=== PATIENT | female | born 1930 | race Caucasian/White ===

== ENCOUNTER 2017-11-30 09:29 | Inpatient (IN) ==
[2017-11-30] MEDS ORDERED: Dextrose 5% in Water Inj 1,000 ML IV.SIG SCH (10:00)
[2017-11-30] MEDS ORDERED: Metoprolol Tartrate 25 MG Tablet PO SCH (10:30)
[2017-11-30] MEDS ORDERED: Chlorhexidine Gluconate 2% 1 Pack (2 Cloths) TOPICAL SCH (10:30)
[2017-11-30] MEDS ORDERED: Sodium Chlor 0.9% Inj 500 ML IV.SIG SCH (11:00)
[2017-11-30] MEDS ORDERED: Lidocaine PF 1% Inj 5 ML Syringe INFILTRATN ONE (12:00)
--- NOTE | 2017-11-30 12:39 | ECG ---
Date Performed: 11/30/2017 Time Performed: 10:39:18 PTAGE: 87 years EKG: Possible atrial flutter with rapid response INTRAVENTRICULAR CONDUCTION DELAY ABNORMAL ECG Compared to prior electrocardiogram, Possible atrial flutter is present. PREVIOUS TRACING : 02/10/2013 05.57 DOCTOR: Marcos Orantes Interpretating Date/Time 11/30/2017 12:38:42
[2017-11-30] MEDS: amLODIPine 10 MG Tablet PO SCH (19:15)
--- NOTE | 2017-11-30 19:26 | MP ---
cc: Ross Aparicio MD, Andrew H MD DATE OF OPERATION: 11/30/2017 PREOPERATIVE DIAGNOSIS: 1. Rectal prolapse, rectal bleeding. 2. Colon cancer screening PROCEDURE: Colonoscopy to cecum. POSTOPERATIVE DIAGNOSES: 1. Normal cecum, ileocecal valve. 2. Diverticulosis rectosigmoid left colon. 3. Full-thickness rectal prolapse. SURGEON: Ross Aparicio MD DESCRIPTION OF PROCEDURE: The patient was placed in the left lateral decubitus position. After adequate anesthesia sedation, rectal exam confirmed quite a patulous attenuated sphincter muscle. The rectal mucosa appeared quite thickened and edematous. The Pentax colonoscope was then introduced into the rectum and advanced easily under direct vision to the proximal colon until the cecum was identified. The ileocecal valve was normal. There were no vascular abnormalities noted in the cecum. Colonoscope was then gradually withdrawn, visualizing mucosal surface throughout the distal colon. No polyps were seen. No luminal narrowing was noted. Diverticulosis was noted throughout the colon, but no acute inflammation. In the rectum, the mucosa was quite beefy red and edematous consistent with her prolapse. No active bleeding was seen. The patient tolerated the procedure quite well and was brought to the recovery room in stable condition. Ross Aparicio MD [facility]/lc , 05:41 PM , 05:46 PM
[2017-12-01] MEDS: Levothyroxine 100 MCG Tablet PO SCH (06:13)
--- NOTE | 2017-12-01 07:52 | P.HPUP ---
The Pre-Admit History and Physical Examination regarding the above named patient was reviewed (including, but not limited to, vital signs, heart, lungs, co-morbid conditions), and upon re-examination it is noted that: the patient's condition has not significantly changed since the last examination.
[2017-12-01 08:43] LABS: Baso # (Auto) 0.1 th/mm3 (0.0-0.2); Baso % (Auto) 0.7 % (0.0-2.0); Eos # (Auto) 0.1 th/mm3 (0.0-0.4); Eos % (Auto) 1.6 % (0.0-4.0); Hematocrit 37.3 % (35.0-46.0); Hemoglobin 12.6 gm/dL (11.6-15.3); Lymph # (Auto) 0.8 th/mm3 (1.0-4.8); Lymph % (Auto) 10.2 % (9.0-44.0); Mean Corpuscular HGB Conc 33.7 % (32.0-36.0); Mean Corpuscular Hemoglobin 29.8 pg (27.0-34.0); Mean Corpuscular Volume 88.4 fL (80.0-100.0); Mean Platelet Volume 7.1 fL (7.0-11.0); Mono # (Auto) 0.9 th/mm3 (0.0-0.9); Mono % (Auto) 11.4 % (0.0-8.0); Neut # (Auto) 6.2 th/mm3 (1.8-7.7); Neut % (Auto) 76.1 % (16.0-70.0); Platelet Count 252 th/mm3 (150-450); Red Blood Count 4.22 mil/mm3 (4.00-5.30); Red Cell Distribution Width 14.1 % (11.6-17.2); White Blood Count 8.2 th/mm3 (4.0-11.0)
[2017-12-01 09:00] LABS: Potassium 4.2 meq/L (3.5-5.1)
[2017-12-01] MEDS ORDERED: Ketorolac Inj 30 MG/ML (IVP) Vial ONE (09:52)
[2017-12-01] MEDS ORDERED: Ketorolac Inj 30 MG/ML (IVP) Vial IV.PUSH ONE (10:30)
[2017-12-01] MEDS ORDERED: Acetaminophen 325 MG Tablet PO PRN (11:39)
[2017-12-01] MEDS ORDERED: Ketorolac Inj 30 MG/ML (IVP) Vial IV.PUSH PRN (11:39)
[2017-12-01] MEDS ORDERED: Naloxone Inj 0.4 MG/ML Vial IV.PUSH PRN (11:47)
[2017-12-01] MEDS ORDERED: fentaNYL Citrate Inj 100 MCG/2 ML Ampul ONE (11:55)
[2017-12-01] MEDS ORDERED: Morphine Inj 30 MG/30 ML PCA.VIAL PCA ONE (12:00)
[2017-12-01] MEDS ORDERED: Lidocaine PF 1% Inj 5 ML Syringe INFILTRATN ONE (12:00)
[2017-12-01] MEDS ORDERED: Neostigmine Inj 5 MG/5 ML Syringe IV.PUSH ONE (12:00)
[2017-12-01] MEDS ORDERED: Phenylephrine/NS 1000 MCG/10ML Syringe IV.PUSH ONE (12:00)
[2017-12-01] MEDS ORDERED: Glycopyrrolate Inj 1 MG/5 ML Syringe IV.PUSH ONE (12:00)
[2017-12-01] MEDS ORDERED: KCL 20 mEq/D5W/NaCl 0.9% Inj 1,000 ML ONE (12:28)
[2017-12-01] MEDS: KCL 20 mEq/D5W/NaCl 0.9% Inj 1,000 ML IV.CONT SCH ×2 (12:37→23:23)
[2017-12-01] MEDS: Morphine Inj 30 MG/30 ML PCA.VIAL PCA PRN (12:41)
--- NOTE | 2017-12-01 17:06 | XR ---
EXAM DATE: 12/01/2017 4:51 PM EDT AGE/SEX: 87 years / Female INDICATIONS: Pain. CLINICAL DATA: This is the patient's initial encounter. Patient reports that signs and symptoms have been present for 3 days and indicates a pain score of 3/10. MEDICAL/SURGICAL HISTORY: None. None. COMPARISON: No prior exams available for comparison. FINDINGS: . Soft tissue scarring above the lateral malleolus. There appears to be a cortical step-off in the di stal fibular metadiaphysis with some dorsal displacement of the distal fragment. Well-corticated ossi fications are seen inferior to the lateral and medial malleolar and may represent accessory ossificat ions or old avulsion injuries. Calcaneal spurs at the plantar aponeurosis and Achilles attachment. Dense atherosclerotic calcificat ion of the regional vasculature CONCLUSION: . 1. Fracture through the distal fibular metadiaphysis with associated soft tissue swelling. 2. Well-corticated ossifications inferior to the lateral and medial malleoli appear chronic and may represent accessory ossicles or old avulsion injuries. Electronically signed by: Nicko Giron MD 12/01/2017 5:05 PM EDT
[2017-12-01] MEDS: amLODIPine 10 MG Tablet PO SCH ×2 (18:17→18:28)
[2017-12-02] MEDS: KCL 20 mEq/D5W/NaCl 0.9% Inj 1,000 ML IV.CONT SCH ×3 (03:08→23:52)
[2017-12-02] MEDS: Levothyroxine 100 MCG Tablet PO SCH (05:50)
[2017-12-02 06:30] LABS: Baso % (Auto) 0.1 % (0.0-2.0); Hematocrit 34.4 % (35.0-46.0); Hemoglobin 11.6 gm/dL (11.6-15.3); Lymph # (Auto) 0.6 th/mm3 (1.0-4.8); Lymph % (Auto) 4.5 % (9.0-44.0); Mean Corpuscular HGB Conc 33.9 % (32.0-36.0); Mean Corpuscular Hemoglobin 29.6 pg (27.0-34.0); Mean Corpuscular Volume 87.5 fL (80.0-100.0); Mean Platelet Volume 7.1 fL (7.0-11.0); Mono # (Auto) 0.9 th/mm3 (0.0-0.9); Mono % (Auto) 6.5 % (0.0-8.0); Neut % (Auto) 88.9 % (16.0-70.0); Platelet Count 304 th/mm3 (150-450); Red Blood Count 3.92 mil/mm3 (4.00-5.30); Red Cell Distribution Width 14.1 % (11.6-17.2); White Blood Count 13.6 th/mm3 (4.0-11.0)
[2017-12-02 07:01] LABS: Calcium 8.7 mg/dL (8.5-10.1); Carbon Dioxide 26.6 meq/L (21.0-32.0); Potassium 4.7 meq/L (3.5-5.1)
--- NOTE | 2017-12-02 08:11 | P.PNCS ---
Subjective Colorectal Surgery Post Op Day #: 1 Interval history: afebrile, VSS UO good Objective Result Diagrams: 12/02/17 06:07 12/02/17 06:07 Objective Remarks: PE alert Abd - softly distended, wound dry Xray - lt ankle - ?small fx distal fibula Assessment and Plan - Plan Imp: stable post-op OOB ortho consult decr IVF
[2017-12-02] MEDS: Pantoprazole Inj 40 MG Vial IV.PUSH SCH (10:56)
--- NOTE | 2017-12-02 14:22 | P.CONOP ---
[facility] Orthopedics Consult Note - [facility] Consult date: 12/02/17 Chief complaint: Colon Narrative: 87-year-old female who presented to the hospital for colorectal procedure with reported fall at home in the bathroom the night before presentation. Patient complains of immediate onset of left ankle pain with inability to ambulate. She denies any other extremity injury. She states prior to this injury, she was ambulating unassisted. She denies any numbness or tingling. Review of Systems Denies fevers, chills, nausea, vomiting, throat pain, chest pain, abdominal pain , blurry vision or dizziness, difficulty with urination, anxiety, rash, weakness , numbness or tingling, cough. Reports left ankle pain and swelling PMFSH - History History Provided By: Patient - Tobacco History Second Hand Smoke Exposure: No Smoking Status: Never smoker - Alcohol History How Often Do You Have a Drink Containing Alcohol: 4 or more times a week - Substance Use History Substance History: No History of Abuse Medications and Allergies Active Medications: Active Medications Acetaminophen (Tylenol) 650 mg PO Q4H PRN PRN Reason: FEVER > 101 F Amlodipine Besylate (Norvasc) 10 mg PO Q24H [facility] Last Admin: 12/01/17 18:28 Dose: Not Given Chlorhexidine Gluconate (Chlorhexidine 2% Cloth) 3 pack TOPICAL EVENTS AND PROMOTIONS ASSISTANT [facility] Stop: 12/03/17 10:29 Last Admin: 11/30/17 10:49 Dose: Not Given Enalaprilat (Vasotec Inj) 2.5 mg IV.PUSH Q6H PRN PRN Reason: SBP > 160 mmHg Furosemide (Lasix Inj) 10 mg IV.PUSH Q12HR [facility] Last Admin: 12/02/17 10:54 Dose: 10 mg Potassium Chloride/Dextrose/Sod Cl (D5w/Ns + Kcl 20 Meq Inj) 1,000 mls @ 70 mls /hr IV.CONT .[id number] [facility] Last Admin: 12/02/17 03:08 Dose: 100 mls/hr Potassium Chloride (Kcl 20 Meq Premix Inj) 20 meq in 100 mls @ 50 mls/hr IV.SIG UNSCH PRN PRN Reason: for K+ level 3.0-3.5 Potassium Chloride (Kcl 40 Meq Premix Inj) 40 meq in 100 mls @ 25 mls/hr IV.SIG UNSCH PRN PRN Reason: for K= level < 3.0 Morphine Sulfate (Morphine Inj) 30 mg in 30 mls @ 0 mls/hr [employer]PER[employer] PROJECT MANAGER UNSCH PRN PRN Reason: per NETWORK OPERATIONS PROJECT MANAGER parameters Last Infusion: 12/02/17 06:35 Dose: 0 mls/hr Ketorolac Tromethamine (Toradol Inj) 15 mg IV.PUSH Q6H PRN PRN Reason: PAIN SCALE 1 TO 10 Stop: 12/04/17 11:38 Levothyroxine Sodium (Synthroid) 100 mcg PO DAILY@0600 [facility] Last Admin: 12/02/17 05:50 Dose: 100 mcg Metoclopramide HCl (Reglan Inj) 10 mg IV.PUSH Q12H [facility]; Protocol Last Admin: 12/02/17 02:53 Dose: 10 mg Metoprolol Tartrate (Lopressor) 25 mg PO EVENTS AND PROMOTIONS ASSISTANT [facility] Stop: 12/03/17 10:29 Last Admin: 11/30/17 10:49 Dose: Not Given Naloxone HCl (Narcan Inj) 0.4 mg IV.PUSH UNSCH PRN PRN Reason: Resp rate < 10 Ondansetron HCl (Zofran Inj) 4 mg IV.PUSH Q6H PRN PRN Reason: NAUSEA OR VOMITING Oxycodone/Acetaminophen (Percocet 5/325 Mg) 2 tab PO Q4H PRN PRN Reason: PAIN SCALE 6 TO 10 Pantoprazole Sodium (Protonix Inj) 40 mg IV.PUSH DAILY [facility] Last Admin: 12/02/17 10:56 Dose: 40 mg Povidone Iodine (Betadine 5% Antisepsis Kit) 1 applicatio EACH NARE EVENTS AND PROMOTIONS ASSISTANT [facility] Stop: 12/03/17 10:29 Last Admin: 11/30/17 10:48 Dose: Not Given Sodium Chloride (Ns Flush) 2 ml IV.FLUSH BID [facility] Last Admin: 12/02/17 10:57 Dose: 2 ml Sodium Chloride (Ns Flush) 2 ml IV.FLUSH UNSCH PRN PRN Reason: FLUSH AFTER USING IV ACCESS Allergies Allergy/AdvReac Type Severity Reaction Status Date / Time aspirin AdvReac Severe Bleeding Verified 11/30/17 10:17 Home Medications Medication Instructions Recorded Confirmed Type amlodipine 10 mg PO DAILY 11/30/17 11/30/17 History levothyroxine 100 mcg PO DAILY 11/30/17 11/30/17 History Exam Vital signs: Vital Signs 12/01/17 16:00 12/01/17 16:23 12/01/17 20:00 Temperature 97.5 F L 97.2 F L Pulse Rate 99 H 100 H Respiratory Rate 18 15 Blood Pressure 105/58 L 98/51 L Pulse Oximetry 96 97 93 L 12/02/17 00:00 12/02/17 04:00 12/02/17 08:00 Temperature 97.6 F 98.7 F 97.1 F L Pulse Rate 98 H 99 H 100 H Respiratory Rate 16 15 17 Blood Pressure 108/57 L 99/55 L 112/64 Pulse Oximetry 95 93 L 100 Intake & Output 12/01/17 12/02/17 12/02/17 18:59 06:59 18:59 Intake Total 1525 / 1525 1800 / 1800 100 / 100 Output Total 185 / 185 550 / 550 Balance 1340 / 1340 1250 / 1250 100 / 100 Weight 43.9 kg Intake: IV 1350 / 1350 1400 / 1400 100 / 100 D5W/NS + KCL 20 mEq Inj 1,000 1000 / 1000 ML @ 100 mls/hr IV.CONT .Q10H [facility] Rx#:[id number] LR 1000 mL Inj 1,000 ML @ 70 1050 / 1050 mls/hr IV.SIG .[id number] [facility] Rx#: [id number] Ancef Inj 1,000 MG In NS Inj 200 / 200 200 / 200 100 ML @ 200 mls/hr IV.SIG Q6H [facility] Rx#:[id number] Flagyl 500 MG Inj 100 ML @ 100 100 / 100 200 / 200 100 / 100 mls/hr IV.SIG Q8H [facility] Rx#: [id number] Oral 175 / 175 400 / 400 Output: Urine 100 / 100 Estimated Blood Loss 10 / 10 Urine Amount (Catheter) 175 / 175 450 / 450 Indwelling Urethral Catheter 175 / 175 450 / 450 Other: # Voids 1 Date of Last Bowel Movement 11/30/17 # Bowel Movements 0 Narrative: Awake, alert, no acute distress Normocephalic Pupils equal No JVD Moist mucous membranes Soft abdomen Nonlabored respirations Regular rate Left lower extremity: Mild swelling with ecchymosis about the lateral aspect of the ankle. Patient demonstrate positive EHL, FHL, dorsiflexion and plantarflexion. Mild tenderness over lateral fibula. Patient has negative logroll. No pain or tenderness about the thigh or knee. Negative Homans. Bilateral upper extremities and right lower extremity: No tenderness palpation of visible deformities. Full active range of motion and strength throughout. Sensation intact. Brisk cap refill. No rash Normal affect Results - Labs Result Diagrams: 12/02/17 06:07 12/02/17 06:07 Labs: Laboratory Results - last 24 hr 12/02/17 12/02/17 06:07 06:07 WBC 13.6 H D RBC 3.92 L Hgb 11.6 Hct 34.4 L MCV 87.5 MCH 29.6 MCHC 33.9 RDW 14.1 Plt Count 304 MPV 7.1 Neut % (Auto) 88.9 H Lymph % (Auto) 4.5 L [place] % (Auto) 6.5 Eos % (Auto) 0.0 Baso % (Auto) 0.1 Neut # (Auto) 12.0 H Lymph # (Auto) 0.6 L [place] # (Auto) 0.9 Eos # (Auto) 0.0 Baso # (Auto) 0.0 WBC Differential . Differential Comment Auto diff final Sodium 139 Potassium 4.7 Chloride 107 Carbon Dioxide 26.6 Anion Gap 5 BUN 12 Creatinine 0.98 Estimated GFR 54 L Random Glucose 151 H Calcium 8.7 - Diagnostic results Imaging: Impressions Ankle X-Ray 12/01/17 15:43 CONCLUSION: . 1. Fracture through the distal fibular metadiaphysis with associated soft tissue swelling. 2. Well-corticated ossifications inferior to the lateral and medial malleoli appear chronic and may represent accessory ossicles or old avulsion injuries. Assessment and Plan - Assessment and Plan 87-year-old female with closed left lateral malleolus fracture, minimally displaced. Radiographs reviewed with the patient and family at bedside. Options of management were discussed including nonoperative care versus operative treatment. Given her fracture appears minimally displaced on radiographs, I would recommend an attempt at nonoperative management. I discussed with the patient that we will place her into a splint today and she should remain nonweightbearing to the left lower extremity. I discussed with the patient that most often these fractures can be treated nonoperatively, however, should her fracture displaced, we could discuss surgical intervention at that time. I explained to the patient that these fractures do take at least 6-8 weeks to heal. I would like see patient back in my office in approximately 2 weeks from discharge.
[2017-12-02] MEDS: Morphine Inj 30 MG/30 ML PCA.VIAL PCA PRN (16:16)
[2017-12-02] MEDS: amLODIPine 10 MG Tablet PO SCH (19:52)
--- NOTE | 2017-12-02 23:25 | MP ---
cc: Ross Aparicio MD DATE OF OPERATION: 12/01/2017 PREOPERATIVE DIAGNOSIS: Full-thickness rectal prolapse. PROCEDURE PERFORMED: Exploratory laparotomy with rectopexy. POSTOPERATIVE DIAGNOSIS: Full-thickness rectal prolapse. SURGEON: Ross Aparicio MD DESCRIPTION OF PROCEDURE: The patient was placed in the supine position. After adequate general anesthesia, her legs were placed in universal stirrups and supported appropriately. The abdomen and perineum were then prepped with Betadine solution and draped in the usual sterile fashion. The abdomen was opened through an infraumbilical midline incision. Entering the abdomen, there were very few adhesions. Exploration revealed a very deep cul-de-sac with somewhat redundant rectosigmoid colon and transverse colon. Quite a bit of diverticulosis was also noted. The small bowel was run from the ligament of Treitz down to the ileocecal valve and felt to be normal. The liver had no palpable masses. The gallbladder was unremarkable. The stomach and duodenum were normal. The uterus had been previously removed and the ovaries appeared to be normal and appropriate for the patient's age. First, the sigmoid colon was mobilized medially by dividing along the white line of Toldt. The left ureter was carefully identified and preserved. The right retroperitoneum was then opened and the right ureter identified and preserved. Dissection then proceeded, mobilizing the bowel off the presacral space down toward the pelvic floor. Anteriorly, some of the adhesions to the cul-de-sac were divided, freeing up the bowel in preparation for the rectopexy. After full mobilization, the rectopexy stitches were placed at the appropriate point, putting traction on the rectum and suturing the mesentery on both sides with 2 interrupted horizontal mattress sutures of 0 Prolene. At completion, there did appear to be adequate fixation of the rectum and the lumen size was not narrowed or compromised at all. The pelvis was irrigated copiously and hemostasis achieved. The midline incision was then closed anatomically, reapproximating the midline fascia with a running #1 PDS suture. The subcutaneous tissues were irrigated copiously and the skin closed with a running subcuticular Vicryl suture. The wound area was washed with normal saline and dried, sterile dressing of Telfa and gauze applied. The patient tolerated the procedure quite well and was brought to the recovery room in stable condition. Sponge and needle counts were correct at the end of the procedure. MD WILLIAM Dixon/tere , 10:51 PM , 10:59 PM RAJIV
[2017-12-03] MEDS: Levothyroxine 100 MCG Tablet PO SCH (05:28)
[2017-12-03] MEDS: KCL 20 mEq/D5W/NaCl 0.9% Inj 1,000 ML IV.CONT SCH (05:28)
[2017-12-03 05:57] LABS: Baso # (Auto) 0.1 th/mm3 (0.0-0.2); Baso % (Auto) 0.4 % (0.0-2.0); Eos # (Auto) 0.1 th/mm3 (0.0-0.4); Eos % (Auto) 0.8 % (0.0-4.0); Hematocrit 34.1 % (35.0-46.0); Hemoglobin 11.1 gm/dL (11.6-15.3); Lymph % (Auto) 8.9 % (9.0-44.0); Mean Corpuscular HGB Conc 32.5 % (32.0-36.0); Mean Corpuscular Hemoglobin 28.9 pg (27.0-34.0); Mean Platelet Volume 7.3 fL (7.0-11.0); Mono # (Auto) 0.9 th/mm3 (0.0-0.9); Mono % (Auto) 7.9 % (0.0-8.0); Neut # (Auto) 9.4 th/mm3 (1.8-7.7); Platelet Count 334 th/mm3 (150-450); Red Blood Count 3.83 mil/mm3 (4.00-5.30); Red Cell Distribution Width 14.5 % (11.6-17.2); White Blood Count 11.5 th/mm3 (4.0-11.0)
[2017-12-03 06:26] LABS: Calcium 8.7 mg/dL (8.5-10.1); Potassium 4.7 meq/L (3.5-5.1)
[2017-12-03] MEDS: Pantoprazole Inj 40 MG Vial IV.PUSH SCH (09:46)
[2017-12-03] MEDS: amLODIPine 10 MG Tablet PO SCH (17:49)
--- NOTE | 2017-12-03 22:58 | P.PNCS ---
Subjective Colorectal Surgery Post Op Day #: 2 Interval history: afebrile, VSS UO good tisha PO Objective Result Diagrams: 12/03/17 05:24 12/03/17 05:24 Objective Remarks: PE alert Abd - softly distended, wound dry Lt leg - splinted Assessment and Plan - Plan Imp: OOB off lt leg ortho consult noted decr IVF lax prn
[2017-12-04] MEDS: KCL 20 mEq/D5W/NaCl 0.9% Inj 1,000 ML IV.CONT SCH ×4 (00:16→22:44)
[2017-12-04] MEDS: Levothyroxine 100 MCG Tablet PO SCH (05:44)
[2017-12-04] MEDS: Pantoprazole Inj 40 MG Vial IV.PUSH SCH (07:59)
--- NOTE | 2017-12-04 14:52 | XR ---
EXAM DATE: 12/04/2017 2:48 PM EDT AGE/SEX: 87 years / Female INDICATIONS: Evaluate for post op ileus. CLINICAL DATA: This is the patient's subsequent encounter. Patient reports that signs and symptoms h ave been present for 1 week and indicates a pain score of 6/10. MEDICAL/SURGICAL HISTORY: . Patient had colon resection Wednesday. Having nausea and stomach scar n. Colon resection. COMPARISON: No prior exams available for comparison. FINDINGS: Numerous diffusely dilated air-filled small bowel loops with air noted throughout the colon. There ar e several air-fluid levels on the upright exam. No gross pneumatosis or free air. Mild blunting of th e posterior costophrenic angles at the lung bases. S-shaped scoliosis of the lumbar spine with associ ated degenerative spondylosis. CONCLUSION: 1. Bowel gas pattern is consistent with moderate adynamic ileus. 2. Minimal bibasilar airspace disease and likely trace pleural effusions. Electronically signed by: Darrick Gifford MD 12/04/2017 2:50 PM EDT
[2017-12-04] MEDS: amLODIPine 10 MG Tablet PO SCH ×2 (16:24→17:57)
[2017-12-05] MEDS: Levothyroxine 100 MCG Tablet PO SCH (05:35)
[2017-12-05] MEDS: KCL 20 mEq/D5W/NaCl 0.9% Inj 1,000 ML IV.CONT SCH ×2 (08:12→18:01)
[2017-12-05] MEDS: Pantoprazole Inj 40 MG Vial IV.PUSH SCH (08:13)
[2017-12-05] MEDS: amLODIPine 10 MG Tablet PO SCH (18:01)
[2017-12-06] MEDS: KCL 20 mEq/D5W/NaCl 0.9% Inj 1,000 ML IV.CONT SCH ×3 (00:32→17:35)
[2017-12-06] MEDS: Levothyroxine 100 MCG Tablet PO SCH (05:36)
[2017-12-06] MEDS: Pantoprazole Inj 40 MG Vial IV.PUSH SCH (09:20)
[2017-12-06] MEDS: amLODIPine 10 MG Tablet PO SCH (17:33)
[2017-12-07] MEDS: Levothyroxine 100 MCG Tablet PO SCH (06:00)
[2017-12-07] MEDS: KCL 20 mEq/D5W/NaCl 0.9% Inj 1,000 ML IV.CONT SCH ×3 (06:04→21:01)
[2017-12-07] MEDS: Pantoprazole Inj 40 MG Vial IV.PUSH SCH (08:47)
[2017-12-07] MEDS: Bisacodyl 10 MG Supp RECTAL SCH (08:48)
--- NOTE | 2017-12-07 15:00 | P.PNCS ---
Subjective Colorectal Surgery Post Op Day #: 6 Interval history: afebrile, VSS UO adeq tisha PO little PO Objective Result Diagrams: 12/03/17 05:24 12/03/17 05:24 Objective Remarks: PE alert Abd - softly tympanic, wound dry Assessment and Plan - Plan Imp: OOB off lt leg ortho consult noted - pt wants to talk about splint decr IVF lax prn DC plans
[2017-12-07] MEDS: amLODIPine 10 MG Tablet PO SCH (17:35)
[2017-12-08] MEDS: Levothyroxine 100 MCG Tablet PO SCH (05:53)
[2017-12-08] MEDS: Pantoprazole Inj 40 MG Vial IV.PUSH SCH (09:00)
[2017-12-08] MEDS: Bisacodyl 10 MG Supp RECTAL SCH (09:00)
[2017-12-08 09:10] LABS: Baso % (Auto) 0.2 % (0.0-2.0); Eos # (Auto) 0.1 th/mm3 (0.0-0.4); Eos % (Auto) 0.7 % (0.0-4.0); Hematocrit 31.9 % (35.0-46.0); Hemoglobin 10.6 gm/dL (11.6-15.3); Lymph # (Auto) 0.5 th/mm3 (1.0-4.8); Lymph % (Auto) 4.5 % (9.0-44.0); Mean Corpuscular HGB Conc 33.1 % (32.0-36.0); Mean Corpuscular Hemoglobin 29.3 pg (27.0-34.0); Mean Corpuscular Volume 88.6 fL (80.0-100.0); Mean Platelet Volume 7.6 fL (7.0-11.0); Mono % (Auto) 8.4 % (0.0-8.0); Neut # (Auto) 10.4 th/mm3 (1.8-7.7); Neut % (Auto) 86.2 % (16.0-70.0); Platelet Count 397 th/mm3 (150-450); Red Cell Distribution Width 14.5 % (11.6-17.2)
[2017-12-08 09:50] LABS: Calcium 8.4 mg/dL (8.5-10.1); Carbon Dioxide 21.4 meq/L (21.0-32.0); Potassium 4.9 meq/L (3.5-5.1)
--- NOTE | 2017-12-08 15:12 | P.PNCS ---
Subjective Colorectal Surgery Post Op Day #: 7 Interval history: afebrile, VSS UO good - paez inserted tisha PO Objective Result Diagrams: 12/08/17 08:03 12/08/17 08:03 Objective Remarks: PE alert Abd - softly tympanic, wound dry, less tender Assessment and Plan - Plan Imp: OOB off lt leg ortho consult noted - pt wants to talk about splint, call placed to MD BUN/Cr elevated - cont IVF lax prn - gastrograffin enema DC plans
[2017-12-08] MEDS ORDERED: Diatrizoate Meglum/Diatrizoate Sod Liq 120 ML Bottle (for RAD diag) RECTAL ONE (16:01)
--- NOTE | 2017-12-08 17:15 | FL ---
EXAM DATE: 12/08/2017 3:50 PM EDT AGE/SEX: 87 years / Female INDICATIONS: Recent rectopexy. Evaluate rectosigmoid CLINICAL DATA: This is the patient's initial encounter. Patient reports that signs and symptoms have been present for 1 week and indicates a pain score of 0/10. MEDICAL/SURGICAL HISTORY: None. . colonoscopy, exploratory lap with rectopexy. COMPARISON: [facility] [place] 2V FLAT & UPRIGHT, 12/04/2017. . FLUORO TIME: 1.8 IMAGE COUNT: 11 FINDINGS: Preliminary film shows multiple air-fluid levels. Under fluoroscopic guidance descending colon. Multiple diverticuli are present in the colon. CONCLUSION: There is no distal obstruction. CT Abdomen Pelvis is suggested to evaluate ileus. Electronically signed by: Zak Childs MD 12/08/2017 5:13 PM EDT
[2017-12-08] MEDS: amLODIPine 10 MG Tablet PO SCH (18:00)
[2017-12-08] MEDS: Heparin - SQ 10,000 UNITS/ML Vial SQ SCH ×2 (20:07→20:08)
[2017-12-08] MEDS: Ketorolac Inj 30 MG/ML (IVP) Vial IV.PUSH PRN (20:09)
[2017-12-08] MEDS: KCL 20 mEq/D5W/NaCl 0.9% Inj 1,000 ML IV.CONT SCH (21:19)
[2017-12-09] MEDS: KCL 20 mEq/D5W/NaCl 0.9% Inj 1,000 ML IV.CONT SCH ×2 (02:10→16:08)
[2017-12-09] MEDS: Levothyroxine 100 MCG Tablet PO SCH (05:25)
[2017-12-09] MEDS: Ketorolac Inj 30 MG/ML (IVP) Vial IV.PUSH PRN (06:01)
--- NOTE | 2017-12-09 07:35 | P.PNCS ---
Subjective Colorectal Surgery Post Op Day #: 8 Interval history: afebrile, VSS UO adeq mult stools Objective Result Diagrams: 12/08/17 08:03 12/08/17 08:03 Objective Remarks: PE alert Abd - softly tympanic mostly LUQ Assessment and Plan - Plan Imp: OOB off lt leg ortho consult noted - pt wants to talk about splint, call placed to MD, no response BUN/Cr elevated - cont IVF, labs pending lax prn - gastrograffin enema - no obstruction TPN
[2017-12-09 10:57] LABS: Calcium 8.6 mg/dL (8.5-10.1); Carbon Dioxide 20.9 meq/L (21.0-32.0); Potassium 5.7 meq/L (3.5-5.1)
--- NOTE | 2017-12-09 11:28 | XR ---
EXAM DATE: 12/09/2017 11:25 AM EDT AGE/SEX: 87 years / Female INDICATIONS: Short of breath. CLINICAL DATA: This is the patient's subsequent encounter. Patient reports that signs and symptoms h ave been present for 1 day and indicates a pain score of Nonresponsive. MEDICAL/SURGICAL HISTORY: None. CABG. Colon resection. [place] [facility] [place]. . FINDINGS: On today's examination there are scattered pulmonary infiltrates in both lungs. There is increased in terstitial markings bilaterally. The heart size is enlarged. There is evidence of previous cardiothor acic surgery. There appears to be an NG tube in the stomach. No evidence of pneumothorax. The bony st ructures are osteopenic but grossly intact. CONCLUSION: 1. Scattered bilateral pulmonary infiltrates 2. Increased interstitial markings bilaterally suggestive of edema. 3. Cardiomegaly. Electronically signed by: Audie Mora MD 12/09/2017 11:27 AM EDT
[2017-12-09 11:35] LABS: ABG Base Excess -9.7 mmol/L (-2-2); ABG PCO2 46 mmHg (38-42); ABG PO2 80 mmHg (61-120)
[2017-12-09] MEDS: Heparin - SQ 10,000 UNITS/ML Vial SQ SCH ×2 (12:26→20:35)
[2017-12-09] MEDS: Pantoprazole Inj 40 MG Vial IV.PUSH SCH (12:26)
[2017-12-09] MEDS: Bisacodyl 10 MG Supp RECTAL SCH (12:27)
[2017-12-09] MEDS ORDERED: Sodium Bicarbonate 8.4% Inj 50 MEQ/50 ML Syringe IV.PUSH ONE (13:00)
--- NOTE | 2017-12-09 13:57 | MB ---
cc: Ren Hare MD DATE: 12/09/2017 REASON FOR CONSULTATION: Respiratory distress. HISTORY OF PRESENT ILLNESS: This is an 87-year-old lady with a history of rectal prolapse who was brought in for surgery and underwent a colonoscopy and repair of rectal prolapse with an exploratory procedure. The patient postoperatively developed ileus and abdominal distention. She also had to have an NG tube placed to clear the abdominal distention and was given diuretics and a chest x-ray showed bilateral pulmonary infiltrates. Over the past 24 hours, her condition has deteriorated with worsening renal functions and acidosis and the patient was also complaining of abdominal pains, distention and nausea. Presently on a nonrebreather mask and the O2 saturations are 90%. Her pO2 was 80, pCO2 of 46, pH of 7.20, bicarbonate of 17. PAST MEDICAL HISTORY: Includes history of coronary artery bypass grafting remotely. The patient also had a fall and ankle fracture on the left side requiring an ankle cast. She has no chronic lung disease, but has a longstanding history of hypertension, controlled with medications. HABITS: The patient never smoked. Alcohol use, occasional. ALLERGIES: NO SIGNIFICANT DRUG ALLERGIES ARE LISTED. FAMILY HISTORY: Noncontributory. REVIEW OF SYSTEMS: The patient has weakness, abdominal distention. She has had no leg swelling or calf muscle pains. She has some joint pains. Denies skin rashes. The other system review is negative. PHYSICAL EXAMINATION: GENERAL: This is an elderly, thinly built white female in mild respiratory distress. VITAL SIGNS: Blood pressure 130/70, pulse 104, respirations 22, temperature 97.2. HEENT: Head is normocephalic. Pupils are reactive and equal. Sclerae are injected. Tongue is dry. Throat is mildly injected. NECK: Supple. No venous distention. No thyromegaly or lymphadenopathy. CHEST: Equal movements with coarse wheezes bilaterally with occasional crackles in the lower lung griffin. HEART: Sounds are irregular S1 and S2 with no murmur. ABDOMEN: Soft, slightly distended. Bowel sounds are faint. There are grey in the lower abdomen from recent surgery. No organomegaly. EXTREMITIES: No edema. Peripheral pulses are diminished. NEUROLOGIC: Reflexes are 1+. The patient does move her extremities well with no gross motor deficits. SKIN: Dry and cool. IMPRESSION: 1. Ileus with abdominal distention. 2. Bilateral lung infiltrates with possible aspiration pneumonia. 3. Acute kidney injury and dehydration. 4. Status post repair of rectal prolapse and exploratory laparotomy. 5. Hypertension. PLAN: The patient will be placed on a partial rebreather mask, started on IV cefepime 1 gram IV q.12 and Flagyl 500 mg q.8 hours. Nebulized albuterol solution added q.i.d. and p.r.n. and IV fluids for hydration at 100 mL per hour. The metabolic acidosis is to be corrected. Sputum cultures will be sent, a followup chest x-ray obtained and the patient will be transferred to the intensive care unit for closer observation. A BiPAP will be used if her O2 saturations drop any further. Thank you, Dr. Aparicio, for this consultation. V. Elizabeth Hare MD [facility]/tere , 01:07 PM , 01:19 PM
[2017-12-09] MEDS ORDERED: Dextrose 5%/NaCl 0.9% Inj 1,000 ML IV.CONT SCH ×2 (15:00→20:00)
[2017-12-09] MEDS ORDERED: Heparin Central Flush 100 UNIT/ML 5 ML Vial IV.FLUSH ONE (15:25)
--- NOTE | 2017-12-09 16:58 | IR ---
EXAM DATE: 12/09/2017 4:12 PM EDT AGE/SEX: 87 years / Female INDICATIONS: Patient presents with Anemia in need of Peripheral Inter-Venous Central Line placement for medication administration. CLINICAL DATA: This is the patient's initial encounter. Patient reports that signs and symptoms have been present for 1 week and indicates a pain score of 0/10. MEDICAL/SURGICAL HISTORY: Asthma. Hypertension. Hypothyroidism. GI bleed, Anemia, Hyperlipid emia, Diabetes Mellitus type 2, CAD, Diverticulosis, Hemorrhoids. Coronary Artery Bypass Graft. COMPARISON: No prior exams available for comparison. FLUORO TIME (min): 0.45 IMAGE SERIES: 3 ACCESS SITE: Left basilic vein MEDICATION(S): 500ml Heparin IV DEVICE(S): 5 Malay double lumen 39cm Xcela Power PICC . . PROCEDURE : 1. Ultrasound guidance for venous catheterization. 2. Ultrasound guided central venous Power PICC line placement. The risks, benefits and alternatives to the procedure were explained and verbal and written consent w as obtained. The site was prepped in sterile fashion. Full sterile technique was used, including ca p, mask, sterile gloves and gown and a large sterile sheet. Hand hygiene and 2% chlorhexidine prep w as utilized per protocol for cutaneous antisepsis with appropriate dry time for site. Sterile gel an d sterile probe cover were utilized for ultrasound guidance. The skin and subcutaneous tissues were infiltrated with local anesthetic solution. Under direct ultrasound guidance, a suitable vein was accessed and a measuring guidewire was introduc ed and positioned in the central venous system. The ultrasound images depicting access guidance were saved and stored to PACS for permanent record. A Power Injectable PICC line was cut to prescribed length and introduced, positioned with tip at the cavoatrial junction level. The line was flushed and secured per protocol. Chest radiograph is to be obtained to confirm position. CONCLUSION: 1. Uncomplicated central venous Power PICC line placement. 2. The PICC line can be used immediately. Electronically signed by: Edenilson Umaña MD 12/09/2017 4:56 PM EDT
[2017-12-09] MEDS: amLODIPine 10 MG Tablet PO SCH (18:10)
[2017-12-09] MEDS: Albumin Human 25% Inj 100 ML IV.SIG SCH (20:35)
[2017-12-09] MEDS: CLINIMIX E IV.CENTRAL SCH ×3 (21:46)
[2017-12-10 07:21] LABS: Eos % (Auto) 0.1 % (0.0-4.0); Hematocrit 28.2 % (35.0-46.0); Hemoglobin 9.5 gm/dL (11.6-15.3); Lymph # (Auto) 0.4 th/mm3 (1.0-4.8); Lymph % (Auto) 3.1 % (9.0-44.0); Mean Corpuscular HGB Conc 33.8 % (32.0-36.0); Mean Corpuscular Hemoglobin 29.8 pg (27.0-34.0); Mean Corpuscular Volume 88.1 fL (80.0-100.0); Mean Platelet Volume 7.5 fL (7.0-11.0); Mono # (Auto) 0.8 th/mm3 (0.0-0.9); Mono % (Auto) 6.2 % (0.0-8.0); Neut % (Auto) 90.6 % (16.0-70.0); Platelet Count 371 th/mm3 (150-450); Red Cell Distribution Width 14.6 % (11.6-17.2); White Blood Count 13.2 th/mm3 (4.0-11.0)
[2017-12-10 07:40] LABS: Calcium 8.3 mg/dL (8.5-10.1); Carbon Dioxide 21.8 meq/L (21.0-32.0); Potassium 3.7 meq/L (3.5-5.1)
[2017-12-10] MEDS: Pantoprazole Inj 40 MG Vial IV.PUSH SCH (08:47)
[2017-12-10] MEDS: Levothyroxine 100 MCG Tablet PO SCH (08:48)
[2017-12-10] MEDS: Albumin Human 25% Inj 100 ML IV.SIG SCH (08:48)
[2017-12-10] MEDS: Heparin - SQ 10,000 UNITS/ML Vial SQ SCH ×2 (08:48→20:14)
--- NOTE | 2017-12-10 10:34 | P.DIET ---
Nutritional Evaluation Type of nutrition evaluation: initial Nutrition consult regarding: TPN/PPN Subjective Subjective Comments: Tolerating clear liquids Objective - Diagnosis Colon - Objective % IBW: 118 (IBW = 118%) Body Weight Used for Calculations: Actual (53.6 kg) Energy Needs - Lower Range (kCal/kg): 25 Energy Needs - Upper Range (kCal/kg): 30 Lower Limit kCal/kg (kCals): 1,340 Upper Limit kCal/kg (kCals): 1,608 Lower Limit Protein Factor (Grams per Kg): 1.0 Upper Limit Protein Factor (Grams per Kg): 1.4 Lower Protein Needs (Protein): 54 Upper Protein Needs (Protein): 75 Fluid Factor (ml/kg): 30 Estimated Fluid Needs (ml): 1,608 Dietitian Reviewed in Medical Record: Current diet, Curent medications, Intake & Output, Labs, Medical history, TPN/PPN Diet Order: clear liquids Objective Comments: Labs: BUN/creat 32/1.50, Est GFR 33, glu 227 Meds include synthroid, lasix, reglan Assessment Assessment: Pt is s/p colonoscopy and repair of rectal prolapse and developed an ileus and abdominal distention post-op. TPN initiated: Clinimix E 5/25 @ 40 mls/hr with no lipids. To better meet needs, recommend increase TPN rate to 50 mls/hr with 20% lipids @ 10 mls/hr to provide a total of 1740 kcals and 60 gms protein. Monitor glucose closely. Recommendations: TPN: Clinimix E 5/25 @ 50 mls/hr LIPIDS: 20 5 lipids @ 10 mls/hr Advance diet per surgery Dietitian to Monitor: Lab values, Glucose level, Intake & Output, TPN/PPN tolerance, Weight change, Diet advancement, Medical course
--- NOTE | 2017-12-10 16:57 | P.PNCS ---
Subjective Colorectal Surgery Post Op Day #: 8 Interval history: afebrile, VSS UO good NGT still mod Objective Result Diagrams: 12/10/17 06:00 12/10/17 06:00 Objective Remarks: PE alert Abd - softly tympanic mostly upper abd Assessment and Plan - Plan Imp: OOB off lt leg BUN/Cr elevated - cont IVF, labs pending, improving TPN -raise rate watch NaCl
--- NOTE | 2017-12-10 16:58 | P.PNOP ---
Subjective Interval history: Patient resting comfortably. Currently receiving breathing treatment Physical Exam Vital signs: Vital Signs 12/09/17 20:00 12/09/17 20:07 12/10/17 00:00 Temperature 98.0 F 98.3 F Pulse Rate 119 H 115 H Respiratory Rate 21 20 Blood Pressure 111/57 L 110/77 Pulse Oximetry 98 96 97 12/10/17 00:31 12/10/17 04:00 12/10/17 07:40 Temperature 98.1 F Pulse Rate 115 H 116 H Respiratory Rate 28 H Blood Pressure 108/63 Pulse Oximetry 96 12/10/17 07:42 12/10/17 09:51 12/10/17 16:24 Temperature 96.4 F L Pulse Rate 117 H 121 H 118 H Respiratory Rate 20 34 H 30 H Blood Pressure 119/71 Pulse Oximetry 96 96 Intake & Output 12/09/17 12/10/17 12/10/17 18:59 06:59 18:59 Intake Total 337 / 337 500 / 500 Output Total 4750 / 4750 1460 / 1460 Balance -4413 / -4413 -960 / -960 Weight 53.6 kg Intake: IV 337 / 337 200 / 200 D5W/NS + KCL 20 mEq Inj 1,000 137 / 137 ML @ 80 mls/hr IV.CONT .[id number] JH Rx#:[id number] Flexbumin 25% Inj 100 ML @ 60 100 / 100 mls/hr IV.SIG DAILY JH Rx#: [id number] Maxipime Inj 1,000 MG In NS Inj 100 / 100 100 / 100 100 ML @ 200 mls/hr IV.SIG Q12H JH Rx#:[id number] Rocephin Inj 1,000 MG In NS Inj 100 / 100 100 ML @ 200 mls/hr IV.SIG Q24H JH Rx#:[id number] Oral 300 / 300 Output: Urine 500 / 500 Estimated Blood Loss 10 / 10 Urine Amount (Catheter) 1750 / 1750 550 / 550 Indwelling Urethral Catheter 1750 / 1750 550 / 550 Gastric Drainage 3000 / 3000 400 / 400 Left Nare Nasogastric Tube 3000 / 3000 400 / 400 Other: # Voids 2 # Urine Diapers 2 Date of Last Bowel Movement 12/08/17 12/10/17 12/10/17 # Bowel Movements 1 Narrative: Awake, alert, no acute distress Currently receiving breathing treatment Left lower extremity: Splint in place and appears intact and in good condition. Patient is able to wiggle toes. Sensation intact over distal toes. Brisk cap refill. - Urinary Catheter Management Indwelling Urethral Catheter Cath placed during this visit: yes, but has since been removed by the nurse Reason for continuing: Hourly intake/output Insertion date: 12/09/17 Insertion time: 12:18 Removal date: 12/02/17 Removal time: 18:30 Results - Labs CBC & Chem 7: 12/10/17 06:00 12/10/17 06:00 Laboratory Results - last 24 hr 12/10/17 12/10/17 06:00 06:00 WBC 13.2 H RBC 3.20 L Hgb 9.5 L Hct 28.2 L MCV 88.1 MCH 29.8 MCHC 33.8 RDW 14.6 Plt Count 371 MPV 7.5 Neut % (Auto) 90.6 H Lymph % (Auto) 3.1 L [place] % (Auto) 6.2 Eos % (Auto) 0.1 Baso % (Auto) 0.0 Neut # (Auto) 12.0 H Lymph # (Auto) 0.4 L [place] # (Auto) 0.8 Eos # (Auto) 0.0 Baso # (Auto) 0.0 WBC Differential . Differential Comment Auto diff final Sodium 145 Potassium 3.7 D Chloride 114 H Carbon Dioxide 21.8 Anion Gap 9 BUN 32 H Creatinine 1.50 H Estimated GFR 33 L Random Glucose 227 H Calcium 8.3 L - Imaging Impressions PICC Line Insertion 12/09/17 00:00 CONCLUSION: 1. Uncomplicated central venous Power PICC line placement. 2. The PICC line can be used immediately. Assessment and Plan - Assessment and Plan 87-year-old female with closed left lateral malleolus fracture, minimally displaced. 1. Nonweightbearing left lower extremity in splint. Splint is to remain in place until follow-up. 2. No plan for surgical intervention at this time. Patient should follow-up as an outpatient in my office in approximately 1 week. Should patient remain in -house, I would obtain x-rays at that time.
[2017-12-10] MEDS ORDERED: Sodium Chloride 0.45 % Inj 1,000 ML IV.CONT SCH (17:00)
[2017-12-10] MEDS: Bisacodyl 10 MG Supp RECTAL SCH (18:16)
[2017-12-10] MEDS: amLODIPine 10 MG Tablet PO SCH (18:20)
--- NOTE | 2017-12-10 18:56 | P.PN ---
Subjective Interval history: Alert and seems confused. Up in bed and breathing better. No fever. renal profile is better. On O2 3 L. Physical Exam Vital signs: Vital Signs 12/09/17 20:00 12/09/17 20:07 12/10/17 00:00 Temperature 98.0 F 98.3 F Pulse Rate 119 H 115 H Respiratory Rate 21 20 Blood Pressure 111/57 L 110/77 Pulse Oximetry 98 96 97 12/10/17 00:31 12/10/17 04:00 12/10/17 07:40 Temperature 98.1 F Pulse Rate 115 H 116 H Respiratory Rate 28 H Blood Pressure 108/63 Pulse Oximetry 96 12/10/17 07:42 12/10/17 09:51 12/10/17 12:00 Temperature 96.4 F L 97.5 F L Pulse Rate 117 H 121 H 120 H Respiratory Rate 20 34 H Blood Pressure 119/71 146/60 H Pulse Oximetry 96 96 97 12/10/17 16:00 12/10/17 16:24 Temperature 97.5 F L Pulse Rate 118 H 118 H Respiratory Rate 19 30 H Blood Pressure 129/76 Pulse Oximetry 97 Intake & Output 12/09/17 12/10/17 12/10/17 18:59 06:59 18:59 Intake Total 337 / 337 500 / 500 820 / 820 Output Total 4750 / 4750 1460 / 1460 2850 / 2850 Balance -4413 / -4413 -960 / -960 -2029 / Weight 53.6 kg Intake: IV 337 / 337 200 / 200 100 / 100 D5W/NS + KCL 20 mEq Inj 1,000 137 / 137 ML @ 80 mls/hr IV.CONT .[id number] JH Rx#:[id number] Flexbumin 25% Inj 100 ML @ 60 100 / 100 mls/hr IV.SIG DAILY JH Rx#: [id number] Maxipime Inj 1,000 MG In NS Inj 100 / 100 100 / 100 100 / 100 100 ML @ 200 mls/hr IV.SIG Q12H JH Rx#:[id number] Rocephin Inj 1,000 MG In NS Inj 100 / 100 100 ML @ 200 mls/hr IV.SIG Q24H JH Rx#:[id number] Oral 300 / 300 720 / 720 Output: Urine 500 / 500 Estimated Blood Loss 10 / 10 Urine Amount (Catheter) 1750 / 1750 550 / 550 1750 / 1750 Indwelling Urethral Catheter 1750 / 1750 550 / 550 1750 / 1750 Gastric Drainage 3000 / 3000 400 / 400 1100 / 1100 Left Nare Nasogastric Tube 3000 / 3000 400 / 400 1100 / 1100 Other: # Voids 2 # Urine Diapers 2 Date of Last Bowel Movement 12/08/17 12/10/17 12/10/17 # Bowel Movements 1 1 Narrative: Awake, alert, no acute distress Left lower extremity: Splint in place GENERAL: Elderly W/F confused SKIN: Warm and dry. HEAD: Atraumatic. Normocephalic. EYES: Pupils equal and round. No scleral icterus. No injection or drainage. ENT: No nasal bleeding or discharge. Mucous membranes pink and moist. NECK: Trachea midline. No JVD. CARDIOVASCULAR: Regular rate and rhythm. RESPIRATORY: No accessory muscle use. bilateral basal crackles. Breath sounds equal bilaterally. GASTROINTESTINAL: Abdomen soft, non-tender,mildly distended. Hepatic and splenic margins not palpable. Poor bowel sounds MUSCULOSKELETAL: Extremities without clubbing, cyanosis, or edema. No obvious deformities. NEUROLOGICAL: Awake and alert. No obvious cranial nerve deficits. Motor grossly within normal limits. Normal speech. PSYCHIATRIC: Appropriate mood and affect but confused - Urinary Catheter Management Indwelling Urethral Catheter Cath placed during this visit: yes, but has since been removed by the nurse Reason for continuing: Hourly intake/output Insertion date: 12/09/17 Insertion time: 12:18 Removal date: 12/02/17 Removal time: 18:30 Results - Labs CBC & Chem 7: 12/10/17 06:00 12/10/17 06:00 Laboratory Results - last 24 hr 12/10/17 12/10/17 06:00 06:00 WBC 13.2 H RBC 3.20 L Hgb 9.5 L Hct 28.2 L MCV 88.1 MCH 29.8 MCHC 33.8 RDW 14.6 Plt Count 371 MPV 7.5 Neut % (Auto) 90.6 H Lymph % (Auto) 3.1 L [place] % (Auto) 6.2 Eos % (Auto) 0.1 Baso % (Auto) 0.0 Neut # (Auto) 12.0 H Lymph # (Auto) 0.4 L [place] # (Auto) 0.8 Eos # (Auto) 0.0 Baso # (Auto) 0.0 WBC Differential . Differential Comment Auto diff final Sodium 145 Potassium 3.7 D Chloride 114 H Carbon Dioxide 21.8 Anion Gap 9 BUN 32 H Creatinine 1.50 H Estimated GFR 33 L Random Glucose 227 H Calcium 8.3 L Assessment and Plan - Assessment (1) Ileus following gastrointestinal surgery Code(s): K91.30 - Postprocedural intestinal obstruction, unspecified as to partial versus complete Status: Acute (2) Aspiration pneumonia due to food (regurgitated) Code(s): J69.0 - Pneumonitis due to inhalation of food and vomit Status: Acute (3) CHF (congestive heart failure) Code(s): I50.9 - Heart failure, unspecified Status: Acute (4) JADYN (acute kidney injury) Code(s): N17.9 - Acute kidney failure, unspecified Status: Acute (5) Dehydration Code(s): E86.0 - Dehydration Status: Acute (6) Encephalopathy Code(s): G93.40 - Encephalopathy, unspecified Status: Acute - Plan 1. NG to suction. 2. Continue antibiotics Cefipime / Flagyl 3. Nebs qid , duoneb 4. O2 3 L N/c 5. CXR ,CBC,BMP in am 6. Continue IV hydration 70 CC 7. IS at bedside q2h.
[2017-12-10] MEDS: CLINIMIX E IV.CENTRAL SCH ×3 (20:21)
--- NOTE | 2017-12-11 05:24 | XR ---
EXAM DATE: 12/11/2017 4:47 AM EDT AGE/SEX: 87 years / Female INDICATIONS: Infiltrate. Respiratory status. CLINICAL DATA: This is the patient's subsequent encounter. Patient reports that signs and symptoms h ave been present for 3 days and indicates a pain score of Nonresponsive. MEDICAL/SURGICAL HISTORY: Non-responsive. Non-responsive. COMPARISON: [facility], CHEST 1V SINGLE AP, 12/09/2017. . FINDINGS: A single AP view of the chest demonstrates persistent bibasilar airspace disease, left worse than rig ht. Heart size is prominent but appears to be well compensated. Nasogastric tube remains curled in th e gastric fundus. Intact median sternotomy wires. CONCLUSION: 1. Stable bibasilar airspace disease with possible associated left-sided effusion. Compensated cardi omegaly. Electronically signed by: Nicko Giron MD 12/11/2017 5:22 AM EDT
[2017-12-11 06:30] LABS: Hematocrit 29.1 % (35.0-46.0); Hemoglobin 9.8 gm/dL (11.6-15.3); Mean Corpuscular HGB Conc 33.8 % (32.0-36.0); Mean Corpuscular Hemoglobin 29.7 pg (27.0-34.0); Mean Platelet Volume 7.2 fL (7.0-11.0); Platelet Count 327 th/mm3 (150-450); Red Cell Distribution Width 14.3 % (11.6-17.2); White Blood Count 15.1 th/mm3 (4.0-11.0)
[2017-12-11 07:14] LABS: Calcium 7.2 mg/dL (8.5-10.1); Carbon Dioxide 26.1 meq/L (21.0-32.0)
[2017-12-11 07:24] LABS: Potassium 2.5 meq/L (3.5-5.1)
[2017-12-11 07:39] LABS: Total Protein 5.7 g/dL (6.4-8.2)
[2017-12-11] MEDS: Potassium Chlor 40 mEq Premix 40 MEQ/100 ML PIGGYBACK IV.SIG PRN (09:25)
[2017-12-11] MEDS: Albumin Human 25% Inj 100 ML IV.SIG SCH (09:25)
[2017-12-11] MEDS: Heparin - SQ 10,000 UNITS/ML Vial SQ SCH ×2 (09:26→20:28)
[2017-12-11] MEDS: Levothyroxine 100 MCG Tablet PO SCH (09:26)
[2017-12-11] MEDS: Bisacodyl 10 MG Supp RECTAL SCH (09:26)
[2017-12-11] MEDS: Pantoprazole Inj 40 MG Vial IV.PUSH SCH (09:27)
[2017-12-11] MEDS: KCL 20 mEq/NACL 0.45% Inj 1,000 ML IV.SIG SCH (11:01)
--- NOTE | 2017-12-11 12:00 | P.PN ---
Subjective Interval history: POD#10 sp rectopexy, prolonged ileus no pain Physical Exam Vital signs: Vital Signs 12/10/17 12:00 12/10/17 16:00 12/10/17 16:24 Temperature 97.5 F L 97.5 F L Pulse Rate 120 H 118 H 118 H Respiratory Rate 19 30 H Blood Pressure 146/60 H 129/76 Pulse Oximetry 97 97 12/10/17 19:40 12/10/17 20:00 12/11/17 00:00 Temperature 97.9 F 97.9 F Pulse Rate 120 H 122 H 109 H Respiratory Rate 17 28 H 24 Blood Pressure 116/58 L 115/67 Pulse Oximetry 95 98 12/11/17 04:00 12/11/17 07:44 12/11/17 08:00 Temperature 97.7 F 97.1 F L Pulse Rate 118 H 120 H 120 H Respiratory Rate 24 26 H 27 H Blood Pressure 126/70 119/74 Pulse Oximetry 96 96 100 Intake & Output 12/10/17 12/11/17 12/11/17 18:59 06:59 18:59 Intake Total 820 / 820 2940.4 / 2940.4 1800 / 1800 Output Total 2850 / 2850 2300 / 2300 Balance -2030 / -2030 640.4 / 640.4 1800 / 1800 Weight 52.4 kg Intake: IV 100 / 100 2220.4 / 2220.4 1800 / 1800 MVI-12 Inj 20 ML Folvite Inj 2 2020.4 / 2020.4 MG In CLINIMIX E 5%/D25W Inj 2, 000 ML @ 50 mls/hr IV.CENTRAL Q24H [facility] Rx#:[id number] 1/2 Normal Saline Inj 1,000 ML 500 / 500 @ 42 mls/hr IV.CONT .[id number] JH Rx#:[id number] Flexbumin 25% Inj 100 ML @ 60 200 / 200 mls/hr IV.SIG DAILY J[facility] Rx#: [id number] Maxipime Inj 1,000 MG In NS Inj 100 / 100 100 / 100 100 ML @ 200 mls/hr IV.SIG Q12H JH Rx#:[id number] Flagyl 500 MG Inj 100 ML @ 100 100 / 100 100 / 100 mls/hr IV.SIG Q12H J[facility] Rx#: [id number] Oral 720 / 720 720 / 720 Output: Urine 1500 / 1500 Urine Amount (Catheter) 1750 / 1750 Indwelling Urethral Catheter 1750 / 1750 Gastric Drainage 1100 / 1100 800 / 800 Left Nare Nasogastric Tube 1100 / 1100 800 / 800 Other: Date of Last Bowel Movement 12/10/17 12/10/17 12/10/17 # Bowel Movements 1 1 - Routine Abdominal Exam Comments: Abdomen soft, moderate distension, tender wound clean - Urinary Catheter Management Indwelling Urethral Catheter Cath placed during this visit: yes, but has since been removed by the nurse Reason for continuing: Hourly intake/output Insertion date: 12/09/17 Insertion time: 12:18 Removal date: 12/02/17 Removal time: 18:30 Results - Labs CBC & Chem 7: 12/11/17 06:00 12/11/17 06:00 Laboratory Results - last 24 hr 12/11/17 12/11/17 06:00 06:00 WBC 15.1 H RBC 3.30 L Hgb 9.8 L Hct 29.1 L MCV 88.0 MCH 29.7 MCHC 33.8 RDW 14.3 Plt Count 327 MPV 7.2 Sodium 140 Potassium 2.5 L* D Chloride 107 Carbon Dioxide 26.1 Anion Gap 7 BUN 22 H Creatinine 0.94 Estimated GFR 56 L Random Glucose 195 H Calcium 7.2 L* D Prot Corrected Calcium 7.9 L Total Protein 5.7 L - Imaging Impressions Chest X-Ray 12/11/17 00:00 CONCLUSION: 1. Stable bibasilar airspace disease with possible associated left-sided effusion. Compensated cardiomegaly. Assessment and Plan - Assessment (1) Ileus following gastrointestinal surgery Code(s): K91.30 - Postprocedural intestinal obstruction, unspecified as to partial versus complete Status: Acute - Plan Still with ileus Continue supportive care
--- NOTE | 2017-12-11 14:17 | P.PNPL ---
Subjective Interval history: Patient is lying in bed in NAD. Afebrile. Physical Exam Vital signs: Vital Signs 12/10/17 16:00 12/10/17 16:24 12/10/17 19:40 Temperature 97.5 F L Pulse Rate 118 H 118 H 120 H Respiratory Rate 19 30 H 17 Blood Pressure 129/76 Pulse Oximetry 97 12/10/17 20:00 12/11/17 00:00 12/11/17 04:00 Temperature 97.9 F 97.9 F 97.7 F Pulse Rate 122 H 109 H 118 H Respiratory Rate 28 H 24 24 Blood Pressure 116/58 L 115/67 126/70 Pulse Oximetry 95 98 96 12/11/17 07:44 12/11/17 08:00 12/11/17 12:00 Temperature 97.1 F L 97.3 F L Pulse Rate 120 H 120 H 116 H Respiratory Rate 26 H 27 H 25 H Blood Pressure 119/74 109/71 Pulse Oximetry 96 100 93 L Intake & Output 12/10/17 12/11/17 12/11/17 18:59 06:59 18:59 Intake Total 820 / 820 2940.4 / 2940.4 1800 / 1800 Output Total 2850 / 2850 2300 / 2300 Balance -2030 / -2030 640.4 / 640.4 1800 / 1800 Weight 52.4 kg Intake: IV 100 / 100 2220.4 / 2220.4 1800 / 1800 MVI-12 Inj 20 ML Folvite Inj 2 2020.4 / 2020.4 MG In CLINIMIX E 5%/D25W Inj 2, 000 ML @ 50 mls/hr IV.CENTRAL Q24H J[facility] Rx#:[id number] 1/2 Normal Saline Inj 1,000 ML 500 / 500 @ 42 mls/hr IV.CONT .[id number] JH Rx#:[id number] Flexbumin 25% Inj 100 ML @ 60 200 / 200 mls/hr IV.SIG DAILY JH Rx#: [id number] Maxipime Inj 1,000 MG In NS Inj 100 / 100 100 / 100 100 ML @ 200 mls/hr IV.SIG Q12H JH Rx#:[id number] Flagyl 500 MG Inj 100 ML @ 100 100 / 100 100 / 100 mls/hr IV.SIG Q12H J[facility] Rx#: [id number] Oral 720 / 720 720 / 720 Output: Urine 1500 / 1500 Urine Amount (Catheter) 1750 / 1750 Indwelling Urethral Catheter 1750 / 1750 Gastric Drainage 1100 / 1100 800 / 800 Left Nare Nasogastric Tube 1100 / 1100 800 / 800 Other: Date of Last Bowel Movement 12/10/17 12/10/17 12/10/17 # Bowel Movements 1 1 - Constitutional no acute distress - Routine HEENT Exam Head: Present: normocephalic, atraumatic Eye: Present: EOMI, PERRL, normal accommodation ENT: Present: mucous membranes moist - Routine Neck Exam Present: supple, full ROM, trachea midline - Routine Respiratory Exam Present: CTA bilaterally - Routine Cardiovascular Exam Present: RRR, S1, S2 - Routine Abdominal Exam Present: soft, normoactive bowel sounds - Routine Extremities Exam Present: full ROM, pulses intact - Routine Skin Exam Present: intact - Routine Neurological Exam Present: alert, oriented X3, CN II-XII intact - Routine Psychiatric Exam Present: normal affect - Urinary Catheter Management Indwelling Urethral Catheter Cath placed during this visit: yes, but has since been removed by the nurse Reason for continuing: Hourly intake/output Insertion date: 12/09/17 Insertion time: 12:18 Removal date: 12/02/17 Removal time: 18:30 Assessment and Plan - Plan 1)Resp Insuff 2)Aspiration pneumonia 3)Postop Ileus 4)POD#10 sp rectopexy 5)closed left lateral malleolus fracture, minimally displaced. 6)Leukocytosis 7)Anemia 8)Hypokalemia 9)CHF - Plan Oxygen PRN keep sats >92% Bronchodilators, IS CXR today-bibasilar airspace disease Continue abx- Cefepime / Flagyl. Monitor for signs of infections ( Fever, WBC) Monitor renal function, electrolytes replacement as needed. Continue treatment plan.
[2017-12-11] MEDS: amLODIPine 10 MG Tablet PO SCH (17:53)
[2017-12-11] MEDS: CLINIMIX E IV.CENTRAL SCH ×3 (20:26)
[2017-12-12] MEDS: Levothyroxine 100 MCG Tablet PO SCH (05:32)
[2017-12-12] MEDS: Heparin - SQ 10,000 UNITS/ML Vial SQ SCH ×2 (08:41→21:05)
[2017-12-12] MEDS: Pantoprazole Inj 40 MG Vial IV.PUSH SCH (08:41)
[2017-12-12] MEDS: Albumin Human 25% Inj 100 ML IV.SIG SCH (08:42)
[2017-12-12] MEDS: Bisacodyl 10 MG Supp RECTAL SCH (08:42)
--- NOTE | 2017-12-12 11:56 | P.PN ---
Subjective Interval history: Postop ileus no change Physical Exam Vital signs: Vital Signs 12/11/17 12:00 12/11/17 15:03 12/11/17 16:00 Temperature 97.3 F L 98.5 F Pulse Rate 116 H 120 H 120 H Respiratory Rate 25 H 26 H 18 Blood Pressure 109/71 112/68 Pulse Oximetry 93 L 93 L 12/11/17 20:00 12/11/17 20:14 12/12/17 00:00 Temperature 98.2 F 98.1 F Pulse Rate 115 H 112 H 100 H Respiratory Rate 28 H 19 26 H Blood Pressure 125/75 105/59 L Pulse Oximetry 92 L 90 L 12/12/17 04:00 12/12/17 07:29 12/12/17 08:00 Temperature 97.6 F 98.4 F Pulse Rate 98 H 104 H 105 H Respiratory Rate 20 24 24 Blood Pressure 88/51 L 109/71 Pulse Oximetry 90 L 92 L 92 L Intake & Output 12/11/17 12/12/17 12/12/17 18:59 06:59 18:59 Intake Total 2450 / 2450 320 / 320 Output Total 1999 750 / 750 Balance 450 / 450 -430 / -430 Weight 53.6 kg Intake: IV 1999 200 / 200 1/2 Normal Saline Inj 1,000 ML 500 / 500 @ 42 mls/hr IV.CONT .[id number] JH Rx#:[id number] Flexbumin 25% Inj 100 ML @ 60 200 / 200 mls/hr IV.SIG DAILY JH Rx#: [id number] Maxipime Inj 1,000 MG In NS Inj 100 / 100 100 / 100 100 ML @ 200 mls/hr IV.SIG Q12H J[facility] Rx#:[id number] Intralipid 20% Inj 250 ML @ 10 0 / 0 mls/hr IV.SIG Q24H JH Rx#: [id number] KCl 40 mEq Premix Inj 40 meq In 100 / 100 100 ml @ 25 mls/hr IV.SIG UNSCH PRN Rx#:[id number] Flagyl 500 MG Inj 100 ML @ 100 100 / 100 100 / 100 mls/hr IV.SIG Q12H JH Rx#: [id number] Oral 450 / 450 120 / 120 Output: Urine 750 / 750 Urine Amount (Catheter) 1900 / 1900 Indwelling Urethral Catheter 1900 / 1900 Gastric Drainage 100 / 100 Left Nare Nasogastric Tube 100 / 100 Other: Date of Last Bowel Movement 12/11/17 12/12/17 12/12/17 # Bowel Movements 3 1 - Routine Abdominal Exam Comments: soft, nondistended, tender, suggestion of fullness at lower incision incision clean - Urinary Catheter Management Indwelling Urethral Catheter Cath placed during this visit: yes, but has since been removed by the nurse Reason for continuing: Hourly intake/output Insertion date: 12/09/17 Insertion time: 12:18 Removal date: 12/02/17 Removal time: 18:30 Results - Labs CBC & Chem 7: 12/11/17 06:00 12/11/17 18:44 Laboratory Results - last 24 hr 12/11/17 18:44 Potassium 3.8 D Assessment and Plan - Assessment (1) Ileus following gastrointestinal surgery Code(s): K91.30 - Postprocedural intestinal obstruction, unspecified as to partial versus complete Status: Acute - Plan Still with ileus check CT Scan Continue supportive care
--- NOTE | 2017-12-12 12:25 | P.PNPL ---
Subjective Interval history: Patient is lying in bed in NAD. Afebrile. on room air oxygen. Physical Exam Vital signs: Vital Signs 12/11/17 15:03 12/11/17 16:00 12/11/17 20:00 Temperature 98.5 F 98.2 F Pulse Rate 120 H 120 H 115 H Respiratory Rate 26 H 18 28 H Blood Pressure 112/68 125/75 Pulse Oximetry 93 L 92 L 12/11/17 20:14 12/12/17 00:00 12/12/17 04:00 Temperature 98.1 F 97.6 F Pulse Rate 112 H 100 H 98 H Respiratory Rate 19 26 H 20 Blood Pressure 105/59 L 88/51 L Pulse Oximetry 90 L 90 L 12/12/17 07:29 12/12/17 08:00 Temperature 98.4 F Pulse Rate 104 H 105 H Respiratory Rate 24 24 Blood Pressure 109/71 Pulse Oximetry 92 L 92 L Intake & Output 12/11/17 12/12/17 12/12/17 18:59 06:59 18:59 Intake Total 2450 / 2450 320 / 320 Output Total 1999 750 / 750 Balance 450 / 450 -430 / -430 Weight 53.6 kg Intake: IV 1999 200 / 200 1/2 Normal Saline Inj 1,000 ML 500 / 500 @ 42 mls/hr IV.CONT .[id number] [facility] Rx#:[id number] Flexbumin 25% Inj 100 ML @ 60 200 / 200 mls/hr IV.SIG DAILY [facility] Rx#: [id number] Maxipime Inj 1,000 MG In NS Inj 100 / 100 100 / 100 100 ML @ 200 mls/hr IV.SIG Q12H [facility] Rx#:[id number] Intralipid 20% Inj 250 ML @ 10 0 / 0 mls/hr IV.SIG Q24H [facility] Rx#: [id number] KCl 40 mEq Premix Inj 40 meq In 100 / 100 100 ml @ 25 mls/hr IV.SIG UNSCH PRN Rx#:[id number] Flagyl 500 MG Inj 100 ML @ 100 100 / 100 100 / 100 mls/hr IV.SIG Q12H [facility] Rx#: [id number] Oral 450 / 450 120 / 120 Output: Urine 750 / 750 Urine Amount (Catheter) 1900 / 1900 Indwelling Urethral Catheter 1899 / 1900 Gastric Drainage 100 / 100 Left Nare Nasogastric Tube 100 / 100 Other: Date of Last Bowel Movement 12/11/17 12/12/17 12/12/17 # Bowel Movements 3 1 - Constitutional no acute distress - Routine HEENT Exam Head: Present: normocephalic, atraumatic Eye: Present: EOMI, PERRL, normal accommodation, conjunctivae pink ENT: Present: mucous membranes moist - Routine Neck Exam Present: supple, full ROM, trachea midline - Routine Respiratory Exam Present: CTA bilaterally - Routine Cardiovascular Exam Present: RRR, S1, S2 - Routine Abdominal Exam Present: soft, normoactive bowel sounds - Routine Extremities Exam Present: full ROM, pulses intact, normal capillary refill - Routine Skin Exam Present: intact - Routine Neurological Exam Present: alert, oriented X3, CN II-XII intact - Urinary Catheter Management Indwelling Urethral Catheter Cath placed during this visit: yes, but has since been removed by the nurse Reason for continuing: Hourly intake/output Insertion date: 12/09/17 Insertion time: 12:18 Removal date: 12/02/17 Removal time: 18:30 Assessment and Plan - Plan 1)Resp Insuff 2)Aspiration pneumonia 3)Postop Ileus 4)POD#10 sp rectopexy 5)closed left lateral malleolus fracture, minimally displaced. 6)Leukocytosis 7)Anemia 8)Hypokalemia 9)CHF - Plan Oxygen PRN keep sats >92% Bronchodilators, IS CXR 12/11-bibasilar airspace disease Continue abx- Cefepime / Flagyl. Monitor for signs of infections ( Fever, WBC) Monitor renal function, electrolytes replacement as needed. For CT abdomen/pelvis today Nutrition support- on TPN Continue treatment plan.
[2017-12-12] MEDS ORDERED: Diatrizoate Meglum/Diatrizoate Sod Liq 9 ML UDC PO ONE (13:15)
[2017-12-12] MEDS: amLODIPine 10 MG Tablet PO SCH (17:47)
[2017-12-12] MEDS: KCL 20 mEq/NACL 0.45% Inj 1,000 ML IV.SIG SCH (17:48)
[2017-12-12] MEDS: CLINIMIX E IV.CENTRAL SCH ×3 (21:04)
[2017-12-13] MEDS: Levothyroxine 100 MCG Tablet PO SCH (05:18)
--- NOTE | 2017-12-13 05:25 | CT ---
EXAM DATE: 12/13/2017 5:16 AM EDT AGE/SEX: 87 years / Female INDICATIONS: Post operative; patient had a prolapsed rectum repaired and a bowel resection to correc t a prolonged ileus. CLINICAL DATA: This is the patient's subsequent encounter. Patient reports that signs and symptoms h ave been present for 1 week and indicates a pain score of 6/10. MEDICAL/SURGICAL HISTORY: . Encephalopathy None. ORAL CONTRAST: Prescribed oral contrast ingested. RADIATION DOSE: 6.64 CTDI (mGy) COMPARISON: [facility] – [place], ABDOMEN 2V FLAT & UPRIGHT, 12/04/2017. . TECHNIQUE: Multiple contiguous axial images were obtained through the abdomen and pelvis following b olus infusion of 96 ml Omnipaque 350 (iohexol) nonionic water-soluble contrast as a single exam dos e. Prescribed oral contrast ingested. Using automated exposure control and adjustment of the mA and/ or kV according to patient size, radiation dose was kept as low as reasonably achievable to obtain op timal diagnostic quality images. DICOM format image data is available electronically for review and comparison. FINDINGS: There is gastric and fairly generalized small bowel distention. Colon is diffusely of the upper limit s of normal caliber. No abrupt caliber changes are demonstrated. No free air seen. Small to moderate ascites is present. Diverticulosis seen of the sigmoid colon. No diverticulitis or other focal inflammatory changes. No acute solid organ abnormality demonstrated. Recent midline laparotomy changes are noted. There is a 3.6 x 7.2 x 9.5 cm fluid collection in the an terior abdominal wall with features typical of a seroma. Otherwise, there is generalized body wall ed daniel. Small moderate pleural effusions with atelectasis seen of the visualized lung bases. CONCLUSION: 1. Fairly generalized meniscus distention and features are most typical of ileus. No abrupt caliber changes are seen. The stomach is decompressed despite presence of a nasogastric tube. 2. Small to moderate ascites. Diffuse body wall edema/anasarca. Recent midline laparotomy. Anterior abdominal wall seroma. 3. Small to moderate bilateral pleural effusions with atelectasis. Electronically signed by: Edenilson Alex MD 12/13/2017 5:24 AM EDT
[2017-12-13] MEDS: Bisacodyl 10 MG Supp RECTAL SCH (09:16)
[2017-12-13] MEDS: Albumin Human 25% Inj 100 ML IV.SIG SCH (09:16)
[2017-12-13] MEDS: Heparin - SQ 10,000 UNITS/ML Vial SQ SCH ×2 (09:17→21:02)
[2017-12-13] MEDS: Pantoprazole Inj 40 MG Vial IV.PUSH SCH (09:18)
[2017-12-13] MEDS: KCL 20 mEq/NACL 0.45% Inj 1,000 ML IV.SIG SCH (11:17)
[2017-12-13] MEDS ORDERED: Bisacodyl 10 MG Supp RECTAL PRN (14:19)
--- NOTE | 2017-12-13 14:22 | P.PNCS ---
Subjective Colorectal Surgery Post Op Day #: 0 Interval history: afebrile, VSS UO good, increasing NGT less +BM Objective Result Diagrams: 12/11/17 06:00 12/11/17 18:44 Objective Remarks: PE alert Abd - softly , almost flat, min tender seroma lower midline Assessment and Plan - Assessment (1) Ileus following gastrointestinal surgery Code(s): K91.30 - Postprocedural intestinal obstruction, unspecified as to partial versus complete Status: Acute - Plan Imp: OOB off lt leg BUN/Cr elevated - improving TPN -raise rate watch NaCl try PO again
--- NOTE | 2017-12-13 14:53 | P.DIET ---
Nutritional Evaluation Type of nutrition evaluation: follow-up Nutrition consult regarding: TPN/PPN Objective - Diagnosis Colon - Objective % IBW: 118 (IBW = 118%) Body Weight Used for Calculations: Actual (53.6 kg) Energy Needs - Lower Range (kCal/kg): 25 Energy Needs - Upper Range (kCal/kg): 30 Lower Limit kCal/kg (kCals): 1,340 Upper Limit kCal/kg (kCals): 1,608 Lower Limit Protein Factor (Grams per Kg): 1.0 Upper Limit Protein Factor (Grams per Kg): 1.4 Lower Protein Needs (Protein): 54 Upper Protein Needs (Protein): 75 Fluid Factor (ml/kg): 30 Estimated Fluid Needs (ml): 1,608 Dietitian Reviewed in Medical Record: Current diet, Curent medications, Intake & Output, Labs, Medical history, TPN/PPN Diet Order: clear liquids Objective Comments: Meds include synthroid, lasix, reglan Assessment Assessment: Pt is s/p colonoscopy and repair of rectal prolapse and developed an ileus and abdominal distention post-op. TPN initiated: Clinimix E 5/20 @ 50 mls/hr with 20% lipids @ 10 mls/hr is running and provides 1536 kcals and 60 gms protein. Labs, wts and clinical course reviewed. Recommendations: TPN: Clinimix E 5/20 @ 50 mls/hr LIPIDS: 20% lipids @ 10 mls/hr Advance diet per surgery Dietitian to Monitor: Lab values, Glucose level, Intake & Output, TPN/PPN tolerance, Weight change, Diet advancement, Medical course
--- NOTE | 2017-12-13 18:08 | P.PN ---
Subjective Interval history: She is feeling better . NG is still in. Has been passing gas. On a diet now. Good output and renal profile is better. Physical Exam Vital signs: Vital Signs 12/12/17 20:00 12/13/17 00:00 12/13/17 04:00 Temperature 97.6 F 97.8 F 97.8 F Pulse Rate 100 H 96 H 86 Respiratory Rate 28 H 28 H 26 H Blood Pressure 100/58 L 127/58 L 100/58 L Pulse Oximetry 90 L 88 L 86 L 12/13/17 08:00 12/13/17 10:00 12/13/17 12:00 Temperature 97.8 F 98.3 F Pulse Rate 90 91 H 82 Respiratory Rate 24 30 H 17 Blood Pressure 109/55 L 98/53 L Pulse Oximetry 92 L 91 L 90 L 12/13/17 16:00 Temperature 98.7 F Pulse Rate 84 Respiratory Rate 21 Blood Pressure 116/60 Pulse Oximetry 93 L Intake & Output 12/12/17 12/13/17 12/13/17 18:59 06:59 18:59 Intake Total 600 / 600 2580.2 / 2580.2 1100 / 1100 Output Total 1999 / 1999 650 / 650 Balance -1400 / -1400 1930.2 / 1930.2 1100 / 1100 Weight 55.7 kg Intake: IV 300 / 300 2460.2 / 2460.2 1100 / 1100 MVI-12 Inj 10 ML Folvite Inj 1 2009.2 / 2009.2 MG In CLINIMIX E 5%/D25W Inj 2, 000 ML @ 50 mls/hr IV.CENTRAL Q24H [facility] Rx#:[id number] Flexbumin 25% Inj 100 ML @ 60 100 / 100 100 / 100 mls/hr IV.SIG DAILY [facility] Rx#: [id number] Maxipime Inj 1,000 MG In NS Inj 100 / 100 100 / 100 100 / 100 100 ML @ 200 mls/hr IV.SIG Q12H [facility] Rx#:[id number] Intralipid 20% Inj 250 ML @ 10 250 / 250 mls/hr IV.SIG Q24H [facility] Rx#: [id number] Potassium Chlor 20 mEq/NACL 0. 800 / 800 45% Inj 1,000 ML @ 42 mls/hr IV .SIG .[id number] [facility] Rx#:[id number] Flagyl 500 MG Inj 100 ML @ 100 100 / 100 100 / 100 100 / 100 mls/hr IV.SIG Q12H [facility] Rx#: [id number] Oral 300 / 300 120 / 120 Output: Urine Amount (Catheter) 1999 650 / 650 Indwelling Urethral Catheter 1999 650 / 650 Other: Date of Last Bowel Movement 12/12/17 12/13/17 12/13/17 # Bowel Movements 3 6 Narrative: Awake, alert, no acute distress Left lower extremity: Splint and dressing in place GENERAL: Elderly W/F confused SKIN: Warm and dry. HEAD: Atraumatic. Normocephalic. EYES: Pupils equal and round. No scleral icterus. No injection or drainage. ENT: No nasal bleeding or discharge. Mucous membranes pink and moist. NECK: Trachea midline. No JVD. CARDIOVASCULAR: Regular rate and rhythm. RESPIRATORY: No accessory muscle use. bilateral basal crackles. Breath sounds equal bilaterally. GASTROINTESTINAL: Abdomen soft, non-tender,mildly distended. Hepatic and splenic margins not palpable. Poor bowel sounds MUSCULOSKELETAL: Extremities without clubbing, cyanosis, or edema. No obvious deformities. NEUROLOGICAL: Awake and alert. No obvious cranial nerve deficits. Motor grossly within normal limits. Normal speech. PSYCHIATRIC: Appropriate mood and affect . - Urinary Catheter Management Indwelling Urethral Catheter Cath placed during this visit: yes, but has since been removed by the nurse Reason for continuing: Hourly intake/output Insertion date: 12/09/17 Insertion time: 12:18 Removal date: 12/02/17 Removal time: 18:30 Results - Labs CBC & Chem 7: 12/11/17 06:00 12/11/17 18:44 - Imaging Impressions Abdomen/Pelvis CT 12/13/17 00:00 CONCLUSION: 1. Fairly generalized meniscus distention and features are most typical of ileus. No abrupt caliber changes are seen. The stomach is decompressed despite presence of a nasogastric tube. 2. Small to moderate ascites. Diffuse body wall edema/anasarca. Recent midline laparotomy. Anterior abdominal wall seroma. 3. Small to moderate bilateral pleural effusions with atelectasis. Assessment and Plan - Assessment (1) Ileus following gastrointestinal surgery Code(s): K91.30 - Postprocedural intestinal obstruction, unspecified as to partial versus complete Status: Acute (2) Aspiration pneumonia due to food (regurgitated) Code(s): J69.0 - Pneumonitis due to inhalation of food and vomit Status: Acute (3) CHF (congestive heart failure) Code(s): I50.9 - Heart failure, unspecified Status: Acute (4) JADYN (acute kidney injury) Code(s): N17.9 - Acute kidney failure, unspecified Status: Acute (5) Dehydration Code(s): E86.0 - Dehydration Status: Acute (6) Encephalopathy Code(s): G93.40 - Encephalopathy, unspecified Status: Acute - Plan 1. D/C NG per surgery 2. Continue antibiotics and switch to PO . 3. Nebs BID , duoneb 4. O2 PRN 2 L 5. CXR ,CBC,BMP in am 6. Advance Diet as tolerated 7. IS at bedside q2h.
[2017-12-13] MEDS: amLODIPine 10 MG Tablet PO SCH (18:29)
[2017-12-13] MEDS: Multivitamin Inj 10 ML, Folic Acid Inj 1 MG in TPN Fluid 2 Liter 2,000 ML IV.SIG SCH (20:59)
--- NOTE | 2017-12-14 04:21 | XR ---
EXAM DATE: 12/14/2017 4:11 AM EDT AGE/SEX: 87 years / Female INDICATIONS: Infiltrate. CLINICAL DATA: This is the patient's subsequent encounter. Patient reports that signs and symptoms h ave been present for 4 - 6 days and indicates a pain score of Nonresponsive. MEDICAL/SURGICAL HISTORY: Non-responsive. CABG. Colon resectioning. [place] [facility] [place]. . FINDINGS: Mild bibasilar consolidation. There is a small pleural effusion on the left. No pneumothorax seen. Mild cardiomegaly is stable. Nasogastric tube tip is in the stomach. There is a left subclavian centr al venous catheter with tip at the atriocaval junction. CONCLUSION: 1. Mild right base consolidation not significantly changed. 2. Small effusion and mild consolidation left base developing. Electronically signed by: Edenilson Alex MD 12/14/2017 4:20 AM EDT
[2017-12-14] MEDS: Levothyroxine 100 MCG Tablet PO SCH (05:19)
[2017-12-14 06:05] LABS: Hematocrit 26.4 % (35.0-46.0); Hemoglobin 8.9 gm/dL (11.6-15.3); Mean Corpuscular HGB Conc 33.6 % (32.0-36.0); Mean Corpuscular Hemoglobin 29.3 pg (27.0-34.0); Mean Platelet Volume 7.7 fL (7.0-11.0); Platelet Count 244 th/mm3 (150-450); Red Blood Count 3.03 mil/mm3 (4.00-5.30); Red Cell Distribution Width 14.2 % (11.6-17.2); White Blood Count 17.4 th/mm3 (4.0-11.0)
[2017-12-14 06:47] LABS: Carbon Dioxide 29.1 meq/L (21.0-32.0)
[2017-12-14 07:05] LABS: Total Protein 5.2 g/dL (6.4-8.2)
[2017-12-14 07:06] LABS: Potassium 2.8 meq/L (3.5-5.1)
[2017-12-14] MEDS ORDERED: Sodium Chlor 0.9% Inj 250 ML IV.SIG SCH (08:00)
[2017-12-14] MEDS: Albumin Human 25% Inj 100 ML IV.SIG SCH (08:46)
[2017-12-14] MEDS: Potassium Chlor 20 mEq Premix 20 MEQ/100 ML PIGGYBACK IV.SIG PRN (08:48)
[2017-12-14] MEDS: Heparin - SQ 10,000 UNITS/ML Vial SQ SCH ×2 (08:54→20:41)
[2017-12-14] MEDS: Pantoprazole Inj 40 MG Vial IV.PUSH SCH (08:55)
[2017-12-14] MEDS: Potassium Chlor 40 mEq Premix 40 MEQ/100 ML PIGGYBACK IV.SIG PRN (16:03)
--- NOTE | 2017-12-14 17:53 | P.PN ---
Subjective Interval history: She is better and now taking PO liquids. Off O2 sat 96. good output and able to sit up. Physical Exam Vital signs: Vital Signs 12/13/17 20:00 12/14/17 00:00 12/14/17 04:00 Temperature 98.7 F 97.6 F 98.1 F Pulse Rate 88 88 110 H Respiratory Rate 22 22 22 Blood Pressure 99/52 L 109/56 L 108/63 Pulse Oximetry 91 L 91 L 90 L 12/14/17 08:00 12/14/17 12:00 12/14/17 12:35 Temperature 97.9 F 97.8 F 98.1 F Pulse Rate 90 113 H 111 H Respiratory Rate 24 20 21 Blood Pressure 105/58 L 115/65 Pulse Oximetry 92 L 95 95 12/14/17 12:48 12/14/17 15:40 12/14/17 16:00 Temperature 97.6 F 97.9 F 97.9 F Pulse Rate 112 H 111 H 110 H Respiratory Rate 21 25 H 30 H Blood Pressure 104/59 L 124/71 122/72 Pulse Oximetry 94 L 94 L 93 L 12/14/17 16:01 12/14/17 17:39 Temperature 97.9 F 98.0 F Pulse Rate 110 H 110 H Respiratory Rate 30 H 22 Blood Pressure 122/72 122/78 Pulse Oximetry 93 L 92 L Intake & Output 12/13/17 12/14/17 12/14/17 18:59 06:59 18:59 Intake Total 1650 / 1650 2270 / 2270 1100 / 1100 Output Total 3350 / 3350 675 / 675 Balance -1700 / -1700 1595 / 1595 1100 / 1100 Weight 52.8 kg Intake: IV 1300 / 1300 1790 / 1790 300 / 300 MVI-12 Inj 10 ML Folvite Inj 1 1440 / 1440 MG In CLINIMIX E 5%/D25W Inj 2, 000 ML @ 60 mls/hr IV.CENTRAL Q24H [facility] Rx#:[id number] Flexbumin 25% Inj 100 ML @ 60 100 / 100 100 / 100 mls/hr IV.SIG DAILY [facility] Rx#: [id number] Maxipime Inj 1,000 MG In NS Inj 100 / 100 100 ML @ 200 mls/hr IV.SIG Q12H [facility] Rx#:[id number] Intralipid 20% Inj 250 ML @ 10 250 / 250 mls/hr IV.SIG Q24H [facility] Rx#: [id number] Potassium Chlor 20 mEq/NACL 0. 800 / 800 45% Inj 1,000 ML @ 42 mls/hr IV .SIG .[id number] [facility] Rx#:[id number] KCl 20 mEq Premix Inj 20 meq In 100 / 100 100 ml @ 50 mls/hr IV.SIG UNSCH PRN Rx#:[id number] Flagyl 500 MG Inj 100 ML @ 100 100 / 100 100 / 100 100 / 100 mls/hr IV.SIG Q12H [facility] Rx#: [id number] Oral 350 / 350 480 / 480 Intake (Blood Product) Amt 800 / 800 Rbc As-3 Leukoreduced Unit 400 / 400 [id number] Rbc As-3 Leukoreduced Unit 400 / 400 [id number] Output: Stool 200 / 200 200 / 200 Urine Amount (Catheter) 3150 / 3150 475 / 475 Indwelling Urethral Catheter 3150 / 3150 475 / 475 Gastric Drainage 0 / 0 Left Nare Nasogastric Tube 0 / 0 Other: Date of Last Bowel Movement 12/13/17 12/13/17 12/13/17 Narrative: Awake, alert, no acute distress Left lower extremity: Splint and dressing in place GENERAL: Elderly W/F . SKIN: Warm and dry. HEAD: Atraumatic. Normocephalic. EYES: Pupils equal and round. No scleral icterus. No injection or drainage. ENT: No nasal bleeding or discharge. Mucous membranes pink and moist. NECK: Trachea midline. No JVD. CARDIOVASCULAR: Regular rate and rhythm. RESPIRATORY: No accessory muscle use. bilateral wheeze. Breath sounds equal bilaterally. GASTROINTESTINAL: Abdomen soft, non-tender,not distended.BS++. Hepatic and splenic margins not palpable. MUSCULOSKELETAL: Extremities without clubbing, cyanosis, or edema. No obvious deformities. NEUROLOGICAL: Awake and alert. No obvious cranial nerve deficits. Motor grossly within normal limits. Normal speech. PSYCHIATRIC: Appropriate mood and affect . - Urinary Catheter Management Indwelling Urethral Catheter Cath placed during this visit: yes, but has since been removed by the nurse Reason for continuing: Hourly intake/output Insertion date: 12/09/17 Insertion time: 12:18 Removal date: 12/02/17 Removal time: 18:30 Results - Labs CBC & Chem 7: 12/14/17 05:40 12/14/17 05:40 Laboratory Results - last 24 hr 12/14/17 12/14/17 12/14/17 01:00 05:40 05:40 WBC 17.4 H RBC 3.03 L Hgb 8.9 L Hct 26.4 L MCV 87.0 MCH 29.3 MCHC 33.6 RDW 14.2 Plt Count 244 MPV 7.7 Sodium 136 Potassium 2.8 L* Chloride 98 Carbon Dioxide 29.1 Anion Gap 9 BUN 19 H Creatinine 0.76 Estimated GFR 72 L Random Glucose 136 H Calcium 7.0 L* Prot Corrected Calcium 8.0 L Total Protein 5.[address] C[address] diff Tox Epid 027 Negative C. difficile (PCR) Negative Blood Type Antibody Screen MTS Gel Crossmatch 12/14/17 08:12 WBC RBC Hgb Hct MCV MCH MCHC RDW Plt Count MPV Sodium Potassium Chloride Carbon Dioxide Anion Gap BUN Creatinine Estimated GFR Random Glucose Calcium Prot Corrected Calcium Total Protein St C. diff Tox Epid 027 C. difficile (PCR) Blood Type O Positive Antibody Screen Negative MTS Gel Crossmatch See Detail - Imaging Impressions Chest X-Ray 12/14/17 00:00 CONCLUSION: 1. Mild right base consolidation not significantly changed. 2. Small effusion and mild consolidation left base developing. Assessment and Plan - Assessment (1) Ileus following gastrointestinal surgery Code(s): K91.30 - Postprocedural intestinal obstruction, unspecified as to partial versus complete Status: Acute (2) Aspiration pneumonia due to food (regurgitated) Code(s): J69.0 - Pneumonitis due to inhalation of food and vomit Status: Acute (3) CHF (congestive heart failure) Code(s): I50.9 - Heart failure, unspecified Status: Acute (4) JADYN (acute kidney injury) Code(s): N17.9 - Acute kidney failure, unspecified Status: Acute (5) Dehydration Code(s): E86.0 - Dehydration Status: Acute (6) Encephalopathy Code(s): G93.40 - Encephalopathy, unspecified Status: Acute (7) Hypokalemia Code(s): E87.6 - Hypokalemia Status: Acute - Plan 1. Reduce IV Fluids. 2. PT evaluation 3. Nebs BID , duoneb 4. D/C O2 , Lasix 5. CBC,BMP in am 6. Advance Diet as tolerated 7. IS at bedside q2h. 8. Potassium Chloride 20 meq BID
[2017-12-14] MEDS: amLODIPine 10 MG Tablet PO SCH (18:10)
[2017-12-14] MEDS: Multivitamin Inj 10 ML, Folic Acid Inj 1 MG in TPN Fluid 2 Liter 2,000 ML IV.SIG SCH (20:41)
[2017-12-15] MEDS: Levothyroxine 100 MCG Tablet PO SCH (06:11)
[2017-12-15] MEDS: Heparin - SQ 10,000 UNITS/ML Vial SQ SCH ×2 (08:29→20:14)
[2017-12-15] MEDS: Pantoprazole Inj 40 MG Vial IV.PUSH SCH (08:29)
[2017-12-15] MEDS: Albumin Human 25% Inj 100 ML IV.SIG SCH (08:30)
[2017-12-15 12:35] LABS: Calcium 7.9 mg/dL (8.5-10.1); Potassium 3.2 meq/L (3.5-5.1)
--- NOTE | 2017-12-15 12:49 | P.PN ---
Subjective Interval history: She was placed on O2 3 l last PM. C/O SOB . No chest pains. taking Po diet. Physical Exam Vital signs: Vital Signs 12/14/17 12:48 12/14/17 15:40 12/14/17 16:00 Temperature 97.6 F 97.9 F 97.9 F Pulse Rate 112 H 111 H 110 H Respiratory Rate 21 25 H 30 H Blood Pressure 104/59 L 124/71 122/72 Pulse Oximetry 94 L 94 L 93 L 12/14/17 16:01 12/14/17 17:39 12/14/17 20:00 Temperature 97.9 F 98.0 F 98.2 F Pulse Rate 110 H 110 H 112 H Respiratory Rate 30 H 22 27 H Blood Pressure 122/72 122/78 130/72 Pulse Oximetry 93 L 92 L 92 L 12/15/17 00:00 12/15/17 04:00 12/15/17 08:00 Temperature 98 F 98.0 F Pulse Rate 110 H 96 H 110 H Respiratory Rate 27 H 23 30 H Blood Pressure 122/67 96/63 L 121/70 Pulse Oximetry 91 L 94 L 96 Intake & Output 12/14/17 12/15/17 12/15/17 18:59 06:59 18:59 Intake Total 1710 / 1710 3460.2 / 3460.2 200 / 200 Output Total 2460 / 2460 650 / 650 Balance -750 / -750 2810.2 / 2810.2 200 / 200 Weight 56.6 kg Intake: IV 550 / 550 2460.2 / 2460.2 200 / 200 Flexbumin 25% Inj 100 ML @ 60 100 / 100 100 / 100 mls/hr IV.SIG DAILY [facility] Rx#: [id number] Intralipid 20% Inj 250 ML @ 10 250 / 250 mls/hr IV.SIG Q24H [facility] Rx#: [id number] MVI-12 Inj 10 ML Folvite Inj 1 2009.2 / 2009.2 MG In TPN Fluid 2 Liter 2,000 ML @ 50 mls/hr IV.SIG DAILY@ 1999 [facility] Rx#:[id number] KCl 20 mEq Premix Inj 20 meq In 100 / 100 100 ml @ 50 mls/hr IV.SIG UNSCH PRN Rx#:[id number] KCl 40 mEq Premix Inj 40 meq In 100 / 100 100 ml @ 25 mls/hr IV.SIG UNSCH PRN Rx#:[id number] NS Inj 250 ML @ 15 mls/hr IV. 250 / 250 SIG ONCE [facility] Rx#:[id number] Flagyl 500 MG Inj 100 ML @ 100 100 / 100 100 / 100 100 / 100 mls/hr IV.SIG Q12H [facility] Rx#: [id number] Oral 360 / 360 1000 / 1000 Intake (Blood Product) Amt 800 / 800 Rbc As-3 Leukoreduced Unit 400 / 400 [id number] Rbc As-3 Leukoreduced Unit 400 / 400 [id number] Output: Urine 750 / 750 Stool 200 / 200 200 / 200 Estimated Blood Loss 10 / 10 Urine Amount (Catheter) 1500 / 1500 450 / 450 Indwelling Urethral Catheter 1500 / 1500 450 / 450 Gastric Drainage 0 / 0 Left Nare Nasogastric Tube 0 / 0 Other: # Voids 2 # Urine Diapers 2 Date of Last Bowel Movement 12/13/17 12/13/17 # Bowel Movements 6 Narrative: Awake, alert, elderly W/F in no acute distress Left lower extremity: Splint and dressing in place GENERAL: Elderly W/F . SKIN: Warm and dry. HEAD: Atraumatic. Normocephalic. EYES: Pupils equal and round. No scleral icterus. No injection or drainage. ENT: No nasal bleeding or discharge. Mucous membranes pink and moist. NECK: Trachea midline. No JVD. CARDIOVASCULAR: Regular rate and rhythm. RESPIRATORY: No accessory muscle use. bilateral wheeze. Occ Basal crackles. Breath sounds equal bilaterally. GASTROINTESTINAL: Abdomen soft, non-tender,not distended.BS++. Hepatic and splenic margins not palpable. MUSCULOSKELETAL: Extremities without clubbing, cyanosis, or edema. No obvious deformities. NEUROLOGICAL: Awake and alert. No obvious cranial nerve deficits. Motor grossly within normal limits. Normal speech. PSYCHIATRIC: Appropriate mood and affect . - Urinary Catheter Management Indwelling Urethral Catheter Cath placed during this visit: yes, but has since been removed by the nurse Reason for continuing: Hourly intake/output Insertion date: 12/09/17 Insertion time: 12:18 Removal date: 12/02/17 Removal time: 18:30 Results - Labs CBC & Chem 7: 12/14/17 05:40 12/15/17 11:47 Laboratory Results - last 24 hr 12/14/17 12/15/17 08:12 11:47 Sodium 135 L Potassium 3.2 L Chloride 99 Carbon Dioxide 27.0 Anion Gap 9 BUN 22 H Creatinine 0.73 Estimated GFR 75 L Random Glucose 162 H Calcium 7.9 L D Blood Type O Positive Antibody Screen Negative MTS Gel Crossmatch See Detail Assessment and Plan - Assessment (1) Ileus following gastrointestinal surgery Code(s): K91.30 - Postprocedural intestinal obstruction, unspecified as to partial versus complete Status: Acute (2) Aspiration pneumonia due to food (regurgitated) Code(s): J69.0 - Pneumonitis due to inhalation of food and vomit Status: Acute (3) CHF (congestive heart failure) Code(s): I50.9 - Heart failure, unspecified Status: Acute (4) JADYN (acute kidney injury) Code(s): N17.9 - Acute kidney failure, unspecified Status: Acute (5) Dehydration Code(s): E86.0 - Dehydration Status: Acute (6) Encephalopathy Code(s): G93.40 - Encephalopathy, unspecified Status: Acute (7) Hypokalemia Code(s): E87.6 - Hypokalemia Status: Acute - Plan 1. D/C IV 2. PT evaluation 3. Nebs BID , duoneb 4. O2 at 2 l 5. CXR today and BMP in am 6. Advance Diet as tolerated 7. IS at bedside q2h. 8. Replace potassium
--- NOTE | 2017-12-15 14:18 | XR ---
EXAM DATE: 12/15/2017 2:13 PM EDT AGE/SEX: 87 years / Female INDICATIONS: Shortness of breath. CLINICAL DATA: This is the patient's subsequent encounter. Patient reports that signs and symptoms h ave been present for 3 days and indicates a pain score of 0/10. MEDICAL/SURGICAL HISTORY: None. CABG. Colon resection. COMPARISON: [facility], CHEST 1V SINGLE AP, 12/14/2017. . FINDINGS: Stable left-sided PICC line. Persistent linear parenchymal opacity in the right lower lung zone with pleural parenchymal opacities in the left lower lung zone. Cardiac lead is enlarged with indistinct c entral pulmonary vascularity. Bony thorax is grossly intact. CONCLUSION: 1. No significant interval change. 2. Cardiomegaly with mild positive fluid balance. 3. Stable small left pleural effusion and associated left lower lobe airspace disease. 4. Stable right lower lobe atelectasis/scarring. Electronically signed by: Darrick Gifford MD 12/15/2017 2:17 PM EDT
[2017-12-15] MEDS: amLODIPine 10 MG Tablet PO SCH (17:31)
[2017-12-15] MEDS: Multivitamin Inj 10 ML, Folic Acid Inj 1 MG in TPN Fluid 2 Liter 2,000 ML IV.SIG SCH (20:14)
[2017-12-15] MEDS: Potassium Chlor 20 mEq Premix 20 MEQ/100 ML PIGGYBACK IV.SIG PRN (20:15)
--- NOTE | 2017-12-15 23:13 | P.PNCS ---
Subjective Colorectal Surgery Post Op Day #: 0 Interval history: afebrile, VSS UO good BM +, loose Objective Result Diagrams: 12/14/17 05:40 12/15/17 11:47 Objective Remarks: PE alert Abd - softly , almost flat, min tender seroma lower midline - draining Assessment and Plan - Assessment (1) Ileus following gastrointestinal surgery Code(s): K91.30 - Postprocedural intestinal obstruction, unspecified as to partial versus complete Status: Acute - Plan Imp: OOB off lt leg TPN -raise rate watch NaCl try PO again,adv slowly
[2017-12-16] MEDS: Levothyroxine 100 MCG Tablet PO SCH (06:33)
[2017-12-16 06:57] VITALS: TEMP 97.6
[2017-12-16] MEDS: Albumin Human 25% Inj 100 ML IV.SIG SCH (08:03)
[2017-12-16] MEDS: Pantoprazole Inj 40 MG Vial IV.PUSH SCH (08:04)
[2017-12-16] MEDS: Heparin - SQ 10,000 UNITS/ML Vial SQ SCH (08:04)
[2017-12-16] MEDS ORDERED: Furosemide 20 MG Tablet PO SCH (09:00)
[2017-12-16 09:07] LABS: Calcium 8.2 mg/dL (8.5-10.1); Carbon Dioxide 25.7 meq/L (21.0-32.0); Potassium 4.7 meq/L (3.5-5.1)
--- NOTE | 2017-12-16 12:42 | P.PN ---
Subjective Interval history: Alert and stable on o2 2 l. On IV Fluids . C/O some abdominal pains. Physical Exam Vital signs: Vital Signs 12/15/17 16:00 12/15/17 20:00 12/16/17 00:00 Temperature 98.0 F 98.2 F 97.7 F Pulse Rate 112 H 112 H 110 H Respiratory Rate 30 H 34 H 22 Blood Pressure 117/68 119/74 116/76 Pulse Oximetry 93 L 93 L 91 L 12/16/17 04:00 12/16/17 08:00 Temperature 97.6 F 97.6 F Pulse Rate 112 H 108 H Respiratory Rate 22 20 Blood Pressure 141/80 H 129/87 Pulse Oximetry 92 L 93 L Intake & Output 12/15/17 12/16/17 12/16/17 18:59 06:59 18:59 Intake Total 200 / 200 2540.2 / 2540.2 200 / 200 Output Total 800 / 800 500 / 500 Balance -600 / -600 2040.2 / 2040.2 200 / 200 Weight 57.9 kg Intake: IV 200 / 200 1940.2 / 1940.2 200 / 200 Flexbumin 25% Inj 100 ML @ 60 100 / 100 100 / 100 mls/hr IV.SIG DAILY [facility] Rx#: [id number] Intralipid 20% Inj 250 ML @ 10 230 / 230 mls/hr IV.SIG Q24H [facility] Rx#: [id number] MVI-12 Inj 10 ML Folvite Inj 1 1510.2 / 1510.2 MG In TPN Fluid 2 Liter 2,000 ML @ 50 mls/hr IV.SIG DAILY@ 2000 [facility] Rx#:[id number] KCl 20 mEq Premix Inj 20 meq In 100 / 100 100 ml @ 50 mls/hr IV.SIG UNSCH PRN Rx#:[id number] Flagyl 500 MG Inj 100 ML @ 100 100 / 100 100 / 100 100 / 100 mls/hr IV.SIG Q12H [facility] Rx#: [id number] Oral 600 / 600 Output: Stool 300 / 300 Urine Amount (Catheter) 800 / 800 200 / 200 Indwelling Urethral Catheter 800 / 800 200 / 200 Other: Date of Last Bowel Movement 12/15/17 # Bowel Movements 3 Narrative: Awake, alert, elderly W/F in no acute distress Left lower extremity: Splint and dressing in place GENERAL: Elderly W/F . SKIN: Warm and dry. HEAD: Atraumatic. Normocephalic. EYES: Pupils equal and round. No scleral icterus. No injection or drainage. ENT: No nasal bleeding or discharge. Mucous membranes pink and moist. NECK: Trachea midline. No JVD. CARDIOVASCULAR: Regular rate and rhythm. RESPIRATORY: No accessory muscle use. bilateral wheeze. Basal crackles. Breath sounds equal bilaterally. GASTROINTESTINAL: Abdomen soft, Mildly tender,not distended. BS++. MUSCULOSKELETAL: Extremities without clubbing, cyanosis, or edema. No obvious deformities. NEUROLOGICAL: Awake and alert. Motor grossly within normal limits. Normal speech. PSYCHIATRIC: Appropriate mood and affect . - Urinary Catheter Management Indwelling Urethral Catheter Cath placed during this visit: yes, but has since been removed by the nurse Reason for continuing: Hourly intake/output Insertion date: 12/09/17 Insertion time: 12:18 Removal date: 12/02/17 Removal time: 18:30 Results - Labs CBC & Chem 7: 12/14/17 05:40 12/16/17 08:07 Laboratory Results - last 24 hr 12/16/17 08:07 Sodium 133 L Potassium 4.7 D Chloride 99 Carbon Dioxide 25.7 Anion Gap 8 BUN 23 H Creatinine 0.70 Estimated GFR 79 L Random Glucose 212 H Calcium 8.2 L - Imaging Impressions Chest X-Ray 12/15/17 00:00 CONCLUSION: 1. No significant interval change. 2. Cardiomegaly with mild positive fluid balance. 3. Stable small left pleural effusion and associated left lower lobe airspace disease. 4. Stable right lower lobe atelectasis/scarring. Assessment and Plan - Assessment (1) Ileus following gastrointestinal surgery Code(s): K91.30 - Postprocedural intestinal obstruction, unspecified as to partial versus complete Status: Acute (2) Aspiration pneumonia due to food (regurgitated) Code(s): J69.0 - Pneumonitis due to inhalation of food and vomit Status: Acute (3) CHF (congestive heart failure) Code(s): I50.9 - Heart failure, unspecified Status: Acute (4) JADYN (acute kidney injury) Code(s): N17.9 - Acute kidney failure, unspecified Status: Acute (5) Dehydration Code(s): E86.0 - Dehydration Status: Acute (6) Encephalopathy Code(s): G93.40 - Encephalopathy, unspecified Status: Acute (7) Hypokalemia Code(s): E87.6 - Hypokalemia Status: Acute - Plan 1. D/C TPN 2. PT evaluation 3. Nebs BID , duoneb PRN 4. O2 at 2 l PRN 5. CBC and BMP in am 6. Up in chair as tolerated 7. IS at bedside q2h. 8. To rehab today and will F/U in 2 weeks
[2017-12-16 13:26] VITALS: RESP 24
--- NOTE | 2017-12-16 13:31 | P.DIET ---
Nutritional Evaluation Type of nutrition evaluation: follow-up Nutrition consult regarding: TPN/PPN Objective - Diagnosis Colon - Objective % IBW: 118 (IBW = 118%) Body Weight Used for Calculations: Actual (53.6 kg) Energy Needs - Lower Range (kCal/kg): 25 Energy Needs - Upper Range (kCal/kg): 30 Lower Limit kCal/kg (kCals): 1,340 Upper Limit kCal/kg (kCals): 1,608 Lower Limit Protein Factor (Grams per Kg): 1.0 Upper Limit Protein Factor (Grams per Kg): 1.4 Lower Protein Needs (Protein): 54 Upper Protein Needs (Protein): 75 Fluid Factor (ml/kg): 30 Estimated Fluid Needs (ml): 1,608 Dietitian Reviewed in Medical Record: Current diet, Curent medications, Intake & Output, Labs, Medical history, TPN/PPN Diet Order: clear liquids Objective Comments: Meds include synthroid, lasix, reglan Assessment Assessment: Pt is s/p colonoscopy and repair of rectal prolapse and developed an ileus and abdominal distention post-op that is now improved. TPN of Clinimix E 5/20 @ 50 mls/hr with 20% lipids @ 10 mls/hr is ordered and provides 1536 kcals and 60 gms protein. Diet has been advanced but adequate po intake is not yet established. Labs, wts and clinical course reviewed. Recommendations: TPN: Clinimix E 5/20 @ 50 mls/hr LIPIDS: 20% lipids @ 10 mls/hr Advance diet per surgery Dietitian to Monitor: Lab values, Glucose level, Intake & Output, TPN/PPN tolerance, Weight change, Diet advancement, Medical course
[2017-12-16 16:34] VITALS: BP 98/78; PULSE 108; O2SAT 96
[2017-12-16 17:33] LABS: Hematocrit 35.6 % (35.0-46.0); Hemoglobin 12.1 gm/dL (11.6-15.3); Mean Corpuscular HGB Conc 33.8 % (32.0-36.0); Mean Corpuscular Volume 85.7 fL (80.0-100.0); Platelet Count 302 th/mm3 (150-450); Red Blood Count 4.16 mil/mm3 (4.00-5.30); Red Cell Distribution Width 14.7 % (11.6-17.2); White Blood Count 13.7 th/mm3 (4.0-11.0)
[2017-12-16] MEDS: amLODIPine 10 MG Tablet PO SCH (17:46)
--- NOTE | 2017-12-16 21:14 | P.PNCS ---
Subjective Colorectal Surgery Post Op Day #: 0 Interval history: afebrile, VSS UO fair +liq stool PO good Objective Result Diagrams: 12/16/17 17:07 12/16/17 17:07 Objective Remarks: PE alert Abd - softly , min tender seroma lower midline - draining, clear Assessment and Plan - Assessment (1) Ileus following gastrointestinal surgery Code(s): K91.30 - Postprocedural intestinal obstruction, unspecified as to partial versus complete Status: Acute - Plan Imp: OOB off lt leg - ortho to fu in office TPN -DC'd watch NaCl try PO again,adv slowly may need additional IVF follow lytes
--- NOTE | 2018-01-18 10:40 | MD ---
cc: Ross Aparicio MD, Brittney L MD DATE OF DISCHARGE: 12/16/2017 ADMITTING DIAGNOSIS: Full-thickness rectal prolapse. PROCEDURES: On 12/01/2017, exploratory laparotomy with rectopexy. POSTOPERATIVE DIAGNOSIS: 1. Full-thickness rectal prolapse. 2. Fracture of the distal fibular metadiaphysis of the left leg. 3. Postoperative ileus. 4. Postoperative hypoxemia and atelectasis. HISTORY OF PRESENT ILLNESS: Ms. Pickett is an 87-year-old female who was seen recently for increasing rectal prolapse and pain. She has been unable to keep the prolapse reduced despite conservative measures. Prolapse was getting larger and showing more discomfort to the patient, as well as more difficulty in cleansing and holding her stools. The patient, therefore, underwent a preop medical evaluation and, after obtaining medical clearance, was admitted for surgical repair of the rectal prolapse. She does move her bowels somewhat irregularly. Has been taking laxatives for some time. Denies any nausea, vomiting, or significant diarrhea. No rectal bleeding or melena. Appetite has been good. Her weight has been fairly stable. Please see the history and physical and other consultations for more complete past medical and surgical history. PERTINENT PHYSICAL: GENERAL: A very thin, older female in no acute distress. ABDOMEN: Soft and rounded. Some tympany. No rebound or guarding or any masses. RECTAL: Anal inspection revealed very patulous anal canal without ulcers or fissures or fistula. Digital exam revealed decreased tone with no masses. Very poor sphincter tone and no blood on the finger. HOSPITAL COURSE: After admission, the patient was taken to the operating room on 12/01/2017, at which point she underwent an exploratory laparotomy with rectopexy. It was a fairly straightforward simple procedure. Postoperatively, she complained of pain in her ankle, which started prior to her admission. X-rays showed a closed left lateral malleolus fracture, minimally displaced. She was seen by Dr. Stallworth and placed in a nonweightbearing splint. She developed some abdominal distention and a paralytic ileus requiring nasogastric tube placement. Chest x-ray did show some atelectasis and some pulmonary infiltrates. She was seen by pulmonary medicine and started on antibiotics and respiratory treatments. Mobilization was somewhat limited due to her splint and nonweightbearing status. Her bowel function gradually started to improve and she was able to be weaned off the nasogastric tube. Oral fluids were started and then advanced to regular diet. She was encouraged to take some laxatives and bowel function was more regular. Patient was eating well enough off IV antibiotics to consider transfer to a rehab facility. She was discharged on 12/16/2017. DISCHARGE INSTRUCTIONS: The patient was discharged eating a regular diet. She was to continue to take some laxatives or enemas to help with bowel function. She was to follow up with Dr. Stallworth for her leg fracture and will be seen by the undersigned in about a week's time for routine followup. She also had a wound seroma drained, which was going to be treated in the nursing facility with wet-to-dry dressings. MD WILLIAM Dixon/mirta , 05:25 PM , 05:36 PM
== END 2017-12-16 18:11 ==
LOC: HSDC 09:29 → N07 16:10 → N03 12-09 15:49
PROVIDERS: ADMIT Colon & Rectal Surgery; ATTEND Colon & Rectal Surgery
PROC: COLONOS (2017-11-30 14:00)